=== PATIENT | male | born 1955 | race Caucasian/White ===

== ENCOUNTER 2017-01-04 08:24 | Emergency (ER) | payer MEDICAID, OTHER ==
[~2017-01-04] VITALS: Ht 177.8 cm; Wt 106.0 kg
[~2017-01-04 08:24] MED LIST: ADVA250A INH; ADVAI250I PO; ALBU1AER INH; APIX5TAB PO; CART240C4 PO; OMEP20TA39 PO
[2017-01-04 08:29] VITALS: BP 135/85; PULSE 82; RESP 20; TEMP 97.5; O2SAT 95
[2017-01-04] MEDS ORDERED: ADVA250A INH (08:55)
[2017-01-04] MEDS ORDERED: GUAI100S7 PO (08:55)
[2017-01-04] MEDS ORDERED: HYDR-3533 PO (08:55)
[2017-01-04] MEDS ORDERED: METO100T9 PO (08:55)
[2017-01-04] MEDS ORDERED: ALBUAER3 INH (08:55)
[2017-01-04] MEDS ORDERED: APIX5TAB PO (08:55)
[2017-01-04] MEDS ORDERED: OMEP20TA PO (08:55)
[2017-01-04] MEDS ORDERED: AZITHROMYCIN 250 MG TAB PO ONE (09:00)
[2017-01-04] MEDS ORDERED: RESP: ALBUTEROL 2.5 MG/IPRATROPIUM 0.5 MG NEB (SCH) INH ONE (09:00)
[2017-01-04] MEDS ORDERED: predniSONE 20 MG TAB PO ONE (09:00)
[2017-01-04] MEDS ORDERED: AZIT250T3 PO (09:46)
[2017-01-04] MEDS ORDERED: DEXT1TAB18 PO (09:46)
[2017-01-04] MEDS ORDERED: PRED-503 PO (09:46)
--- NOTE | 2017-01-04 09:47 | PD ---
HPI Chief Complaint: Cold / Flu Symptoms Time Seen by Provider: 08:35 Travel History International Travel<30 days: No Contact w/Intl Traveler<30days: No Traveled to known affect area: No History of Present Illness HPI This is a 61-year-old man who presents to the emergency department complaining of a high right flank pain for the past week associated with worsening of his COPD symptoms. He describes increased phlegm and sputum production, increased shortness of breath, increased sputum purulence. It also be getting a little bit lightheaded and dizzy when she's gotten when he gotten sick before. He said some chills and subjective fevers. He is also a little bit of abdominal pain. He is currently dealing with a: Mastoids still being evaluated. He takes stool softener to prevent any problems and has had soft stools ever since. No vomiting. He otherwise has been feeling generally well and healthy. History Past Medical History Narrative Medical COPD A. fib, Eliquis Tetanus Vaccination: Unknown Influenza Vaccination: No Social History Alcohol Use: Yes (8-10 beers day ) Tobacco Use: Yes (1 PPD) Allergies-Medications (Allergen,Severity, Reaction): Coded Allergies: No Known Allergies (Verified , 01/04/17) Reported Meds & Prescriptions Reported Meds & Active Scripts Active Reported Lortab (Hydrocodone-Acetaminophen) 5-325 Mg Tab 1 Tab PO Q6H PRN Guaifenesin Liq (Guaifenesin) 100 mg/5 ML Soln 400 Mg PO Q4H PRN Metoprolol Succinate ER 24 HR (Metoprolol Succinate) 100 Mg Tab 100 Mg PO DAILY Eliquis (Apixaban) 5 Mg Tab 5 Mg PO BID Proair Hfa 8.5 GM Inh (Albuterol Sulfate) 90 Mcg/Act Aer 2 Puff INH QID PRN 108 mcg/actuation Omeprazole 20 Mg Tab 20 Mg PO DAILY Advair Diskus Inh (Fluticasone-Salmeterol Inh) 250-50 Mcg/Blist Aer 1 Puff INH DAILY Rinse mouth after use. Review of Systems Except as stated in HPI: all other systems reviewed are Neg Physical Exam Narrative GENERAL: Well-appearing 61-year-old man, no acute distress. HEAD: Atraumatic. Normocephalic. EYES: Pupils equal and round. No scleral icterus. No injection or drainage. ENT: No nasal bleeding or discharge. Mucous membranes pink and moist. NECK: Trachea midline. No JVD. CARDIOVASCULAR: Regular rate and rhythm. No murmur appreciated. RESPIRATORY: Normal rate and effort. Mild expiratory wheezing. GASTROINTESTINAL: Abdomen soft, non-tender, nondistended. Hepatic and splenic margins not palpable. MUSCULOSKELETAL: No obvious deformities. No edema. NEUROLOGICAL: Awake and alert. No obvious cranial nerve deficits. Motor grossly within normal limits. Normal speech. PSYCHIATRIC: Appropriate mood and affect; insight and judgment normal. Data Data Last Documented VS Vital Signs Date Time Temp Pulse Resp B/P Pulse Ox O2 Delivery O2 Flow Rate FiO2 01/04/17 08:41 16 95 Room Air 01/04/17 08:29 97.5 82 135/85 Orders Chest, Pa & Lat (01/04/17 08:48) Albuterol-Ipratropium Neb (Duoneb Neb) (01/04/17 09:00) Prednisone (Deltasone) (01/04/17 09:00) Azithromycin (Zithromax) (01/04/17 09:00) MDM Medical Decision Making Medical Screen Exam Complete: Yes Emergency Medical Condition: Yes Interpretation(s) My review of chest x-ray: Negative Differential Diagnosis COPD exacerbation, pneumonia, UTI, other Narrative Course Medical decision making 61-year-old man who presents emergency department complaining of cough cold symptoms. These are social with some flank pain and worsening COPD. He otherwise looks well. He states he had blood work done just recently that was normal. He is not noticed any urinary changes. He doesn't really want any blood work or urine test done at this point. I think it's reasonable. Check an x-ray, treatment for COPD exacerbation. Diagnosis Primary Impression: COPD exacerbation Additional Instructions: Use Mucinex DM as needed for cough. Take prednisone as prescribed. Asked doses due tomorrow. Take azithromycin as prescribed. Next dose is due tomorrow. Continue albuterol inhaler or nebulizer every 4 hours until symptoms resolve. Follow-up with your primary doctor in 1-2 days. Return to the emergency department for any worsening chest pain, trouble breathing, or any other new or worsening symptoms. Med/Other Pt SpecificInfo: Prescription(s) given Scripts Dextromethorphan-Guaifenesin ER 12 HR (Mucinex DM Maximum Strength)60-1,200 Mg Tab1 Tab PO BID PRN (CHEST CONGESTION AND/OR COUGH) #14 TAB Prov:Chris Alvarez MD 01/04/17 Prednisone (Deltasone)20 Mg Tab40 Mg PO DAILY 10 Days Prov:Chris Alvarez MD 01/04/17 Azithromycin 250 Mg Hiq613 Mg PO DAILY 4 Days Prov:Chris Alvarez MD 01/04/17 Disposition: 01 DISCHARGE HOME Condition: Stable Chris Alvarez MD Jan 04, 2017 09:47
[2017-01-04] MEDS ORDERED: ALBU0.08 NEB (09:53)
--- NOTE | 2017-01-04 09:59 | RADHPO ---
EXAM DATE/TIME: 01/04/2017 08:58 [facility] COMPARISON: CHEST PA & LAT, January 03, 2016, 12:10. INDICATIONS : Shortness of breath,coughing and chest pain. MEDICAL HISTORY : Hypertension. Chronic obstructive pulmonary disease. Diverticulitis. Hiatal Hernia, GERD, Esophag eal polyps, A-Fib SURGICAL HISTORY : Cholecystectomy. ENCOUNTER: Initial ACUITY: 4 - 6 days PAIN SCORE: 7/10 LOCATION: Bilateral upper chest FINDINGS: PA and lateral views of the chest demonstrate the lungs to be symmetrically aerated without confluent infiltrate or effusion. There were nodular densities clearly identified on the prior exam which are difficult to see currently. I believe the nodule previously identified in the right base now projects over one of the lower ribs. These nodules were deemed stable over multiple years on the prior exams. Heart size is normal. Osseous structures are intact. CONCLUSION: 1. No confluent infiltrate or effusion. 2. Nodules documented on previous CT and plain film radiographs of the chest are difficult to visuali ze on the current exam. I believe the small nodule in the right base now projects over one of the rib s. Lungs are otherwise clear. Sky Tran MD on January 04, 2017 at 9:51 Board Certified Radiologist. This report was verified electronically.
[2017-01-04 10:10] VITALS: BP 129/77
== END 2017-01-04 10:18 | disposition home or self-care (01) ==
LOC: PHED 08:24
DX: J44.1 Chronic obstructive pulmonary disease with (acute) exacerbation (principal); R42 Dizziness and giddiness; I48.91 Unspecified atrial fibrillation; F17.200 Nicotine dependence, unspecified, uncomplicated; Z79.01 Long term (current) use of anticoagulants; Z87.09 Personal history of other diseases of the respiratory system
CPT/HCPCS: 71020; 94664; 99284; J7512

== ENCOUNTER 2017-08-11 08:33 | Inpatient (IN) | payer MEDICAID ==
[~2017-08-11] VITALS: Ht 175.3 cm; Wt 108.2 kg
[2017-08-11] VITALS (13 sets, daily range): BP systolic 119–172; BP diastolic 73–97; PULSE 51–147; RESP 16–24; TEMP 97.7–98.2; O2SAT 96–100
[~2017-08-11 08:33] MED LIST changes: -ADVAI250I PO; +ALBU0.08 NEB; -ALBU1AER INH; +ALBUAER3 INH; +AZIT250T3 PO; -CART240C4 PO; +DEXT1TAB18 PO; +GUAI100S7 PO; +HYDR-3533 PO; +METO1TAB43 PO; -OMEP20TA39 PO; +OMEP20TA93 PO; +PRED-503 PO
[2017-08-11] MEDS ORDERED: SODIUM CHLORIDE 0.9% FLUSH 10 ML FLUSH IV FLUSH PRN (09:00)
[2017-08-11] MEDS ORDERED: HYDROmorphone HCL PF 2 MG/ML VIAL IVS ONE (09:00)
[2017-08-11] MEDS ORDERED: ONDANSETRON HCL 4 MG/2 ML VIAL IVP ONE (09:00)
--- NOTE | 2017-08-11 09:06 | PD ---
HPI Chief Complaint: Chest Pain Time Seen by Provider: 08:57 Travel History International Travel<30 days: No Contact w/Intl Traveler<30days: No Traveled to known affect area: No History of Present Illness HPI Patient presents with complaints of acute right flank pain that is shooting through to his liver across the abdomen and into his bilateral breast with constant tingling. Last BM yesterday without blood. He attempted Miralax, coffee and beer this morning which normally aids in his bowel movements. Admits to 6-12 beers per day. Reports one episode of vomiting this morning with persistent nausea. States his urination has slowed since midnight. History of cholecystectomy. Past medical history for A. fib followed by cardiology. Compliant with beta isaiah last night. Compliant with Eliquis this morning. History of COPD he has not followed by pulmonology. 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 Kenny with recent multiple colonoscopies. PFSH Past Medical History Hx Anticoagulant Therapy: Yes (ELIQUIS) Atrial Fibrillation: Yes Autoimmune Disease: No Cancer: No Cardiovascular Problems: Yes (A-FIB) COPD: Yes Diabetes: No Diminished Hearing: No Diverticulitis: Yes Endocrine: No Gastrointestinal Disorders: Yes (ESOPHAGEAL POLYPS) GERD: Yes Genitourinary: No Hiatal Hernia: Yes Immune Disorder: No Musculoskeletal: No Neurologic: No Reproductive: No Respiratory: Yes (COPD) Immunizations Current: Yes Thyroid Disease: No Past Surgical History Abdominal Surgery: Yes (gallbladder removed) Cholecystectomy: Yes Eye Surgery: Yes (LEFT EYE A CHILD) Other Surgery: Yes Social History Alcohol Use: Yes (8-10 beers day ) Tobacco Use: Yes (1 PPD) Substance Use: Yes (hx of POT use) Allergies-Medications (Allergen,Severity, Reaction): Coded Allergies: No Known Allergies (Verified Allergy, Unknown, 08/11/17) Reported Meds & Prescriptions Reported Meds & Active Scripts Active Albuterol Neb (Albuterol Sulfate) 2.5 Mg/3 Ml Neb 2.5 Mg NEB Q4HR NEB PRN Reported Hydrocodone-Acetaminophen 5-325 mg Tab 1 Tab PO Q6H PRN Metoprolol Succinate ER 24 HR (Metoprolol Succinate) 100 Mg Tab 100 Mg PO DAILY Eliquis (Apixaban) 5 Mg Tab 5 Mg PO BID Proair Hfa 8.5 GM Inh (Albuterol Sulfate) 90 Mcg/Act Aer 2 Puff INH QID PRN 108 mcg/actuation Omeprazole 20 Mg Tab 20 Mg PO DAILY Advair Diskus Inh (Fluticasone-Salmeterol Inh) 250-50 Mcg/Blist Aer 1 Puff INH DAILY Rinse mouth after use. Review of Systems General / Constitutional: No: Fever Eyes: No: Visual changes HENT: No: Headaches Cardiovascular: No: Chest Pain or Discomfort Respiratory: No: Shortness of Breath Gastrointestinal: Positive: Nausea, Vomiting, Abdominal Pain, Constipation Genitourinary: No: Dysuria Musculoskeletal: No: Pain Skin: No Rash Neurologic: No: Weakness Psychiatric: No: Depression Endocrine: No: Polydipsia Hematologic/Lymphatic: No: Easy Bruising Physical Exam Narrative GENERAL: Well-nourished, well-developed patient. SKIN: Focused skin assessment warm/dry. HEAD: Normocephalic. EYES: No scleral icterus. No injection or drainage. NECK: Supple, trachea midline. No JVD or lymphadenopathy. CARDIOVASCULAR: Irregular rate and rhythm without murmurs, gallops, or rubs. Tachycardic rate in the 120s RESPIRATORY: Breath sounds equal bilaterally. No accessory muscle use. GASTROINTESTINAL: Abdomen distended, diffusely tender in all [place], positive upper bowel sounds Pain is 10 out of 10 constant in nature with the exception of right back pain and bilateral breast tingling presents in waves. Palpation of the right flank elicits right flank pain MUSCULOSKELETAL: No cyanosis, or edema. BACK: Nontender without obvious deformity. No CVA tenderness. Data Data Last Documented VS Vital Signs Date Time Temp Pulse Resp B/P (MAP) Pulse Ox O2 Delivery O2 Flow Rate FiO2 08/11/17 10:23 17 08/11/17 10:20 122 172/93 (119) 97 Room Air 08/11/17 08:35 97.7 Orders Orders Complete Blood Count With Diff (08/11/17 08:57) Comprehensive Metabolic Panel (08/11/17 08:57) Lipase (08/11/17 08:57) Lactic Acid (08/11/17 08:57) Prothrombin Time / Inr (Pt) (08/11/17 08:57) Act Partial Throm Time (Ptt) (08/11/17 08:57) Urinalysis - C+S If Indicated (08/11/17 08:57) Ct Abd/Pel W Iv Contrast(Rout) (08/11/17 08:57) Iv Access Insert/Monitor (08/11/17 08:57) Ecg Monitoring (08/11/17 08:57) Oximetry (08/11/17 08:57) Hydromorphone Pf Inj (Dilaudid Pf Inj) (08/11/17 09:00) Ondansetron Inj (Zofran Inj) (08/11/17 09:00) Sodium Chloride 0.9% Flush (Ns Flush) (08/11/17 09:00) Ckmb (Isoenzyme) Profile (08/11/17 09:07) Magnesium (Mg) (08/11/17 09:07) Troponin I (08/11/17 09:07) Chest, Single Ap (08/11/17 09:07) Hydromorphone Pf Inj (Dilaudid Pf Inj) (08/11/17 09:30) Iohexol 350 Inj (Omnipaque 350 Inj) (08/11/17 09:57) Sodium Chlor 0.9% 1000 Ml Inj (Ns 1000 M (08/11/17 10:15) NPO (08/11/17 10:02) Apixaban (Eliquis) (08/11/17 21:00) (Nf) Fluticasone-Salmeterol Inh (Advair (08/12/17 09:00) Metoprolol Succinate Er (Toprol Xl) (08/12/17 09:00) Labetalol Inj (Trandate Inj) (08/11/17 11:00) Admit To Inpatient (08/11/17 ) Code Status (08/11/17 10:49) Vital Signs (Adult) Q4H (08/11/17 10:49) Activity Oob Ad Gillian (08/11/17 10:49) Intake + Output ALLAN.QSHIFT (08/11/17 10:49) Diet Npo (08/11/17 Lunch) Sodium Chlor 0.9% 1000 Ml Inj (Ns 1000 M (08/11/17 10:49) Sodium Chloride 0.9% Flush (Ns Flush) (08/11/17 11:00) Sodium Chloride 0.9% Flush (Ns Flush) (08/11/17 21:00) Ketorolac Inj (Toradol Inj) (08/11/17 11:00) Ondansetron Inj (Zofran Inj) (08/11/17 11:00) Lipase (08/12/17 06:00) Complete Blood Count With Diff (08/12/17 06:00) Us Abdomen Gallbladder (08/11/17 ) Inpatient Certification (08/11/17 ) Alcohol (Ethanol) (08/11/17 10:49) Comprehensive Metabolic Panel (08/12/17 06:00) Pantoprazole (Protonix) (08/12/17 09:00) Albuterol-Ipratropium Neb (Duoneb Neb) (08/11/17 11:00) Hemoglobin (Hgb) A1c (08/12/17 06:00) Bedside Glucose ALLAN.CSUGAR (08/11/17 10:49) Blood Glucose Goal (Criteria) (08/11/17 10:49) Hypoglycemia 70 Mg/Dl Or < (08/11/17 10:49) Notify Dr: Other (08/11/17 10:49) Dextrose 50% In Sonny (Vial) Inj (D50w (Vi (08/11/17 11:00) Glucagon Inj (Glucagon Inj) (08/11/17 11:00) Insulin Aspart Supplemtl Scale (Novolog (08/11/17 12:00) Enalaprilat Inj (Vasotec Inj) (08/11/17 11:00) Lactic Acid (08/11/17 10:55) Ciprofloxacin 400 Mg Premix (Cipro 400 M (08/11/17 11:00) Admit Order (Ed Use Only) (08/11/17 ) Vital Signs (Adult) Q4H (08/11/17 10:57) Activity Oob With Assistance (08/11/17 10:57) Notify Dr: Other (08/11/17 10:57) Labs Laboratory Tests Test 08/11/17 08:45 08/11/17 09:08 08/11/17 10:20 White Blood Count 15.1 TH/MM3 Red Blood Count 5.01 MIL/MM3 Hemoglobin 15.3 GM/DL Hematocrit 44.4 % Mean Corpuscular Volume 88.7 FL Mean Corpuscular Hemoglobin 30.6 PG Mean Corpuscular Hemoglobin Concent 34.5 % Red Cell Distribution Width 12.9 % Platelet Count 370 TH/MM3 Mean Platelet Volume 7.6 FL CBC Comment AUTO DIFF Differential Total Cells Counted 100 Neutrophils % (Manual) 85 % Band Neutrophils % 4 % Lymphocytes % 6 % Monocytes % 3 % Basophils % 2 % Neutrophils # (Manual) 13.4 TH/MM3 Differential Comment FINAL DIFF MANUAL Platelet Estimate NORMAL Platelet Morphology Comment NORMAL Red Cell Morphology Comment NORMAL Prothrombin Time 10.6 SEC Prothromb Time International Ratio 1.0 RATIO Activated Partial Thromboplast Time 28.5 SEC Blood Urea Nitrogen 13 MG/DL Creatinine 0.97 MG/DL Random Glucose 207 MG/DL Total Protein 7.9 GM/DL Albumin 3.6 GM/DL Calcium Level 9.5 MG/DL Alkaline Phosphatase 75 U/L Aspartate Amino Transf (AST/SGOT) 22 U/L Alanine Aminotransferase (ALT/SGPT) 36 U/L Total Bilirubin 0.6 MG/DL Sodium Level 135 MEQ/L Potassium Level 4.0 MEQ/L Chloride Level 102 MEQ/L Carbon Dioxide Level 20.6 MEQ/L Anion Gap 12 MEQ/L Estimat Glomerular Filtration Rate 79 ML/MIN Magnesium Level 1.8 MG/DL Total Creatine Kinase 99 U/L Troponin I LESS THAN 0.02 NG/ML Lipase 63045 U/L Lactic Acid Level 2.1 mmol/L Urine Collection Type CLEAN CATCH Urine Color YELLOW Urine Turbidity CLEAR Urine pH 5.5 Urine Specific [place] GREATER THAN 1.035 Urine Protein TRACE mg/dL Urine Glucose (UA) 500 mg/dL Urine Ketones 15 mg/dL Urine Occult Blood TRACE Urine Nitrite NEG Urine Bilirubin NEG Urine Leukocyte Esterase NEG Urine RBC 0-3 /hpf Urine Squamous Epithelial Cells 0-5 /hpf Urine Amorphous Sediment FEW Microscopic Urinalysis Comment CULT NOT INDICATED Urine Collection Time 1020 MDM Medical Decision Making Medical Screen Exam Complete: Yes Emergency Medical Condition: Yes Differential Diagnosis Pyelonephritis, nephrolithiasis, pancreatitis, small bowel obstruction, ischemic bowel, uncontrolled A. fib Narrative Course Assessment and plan discussed with patient at bedside. EKG reveals atrial fibrillation with rapid ventricular rate of 122, right bundle branch block present. CT revealed induration of the fat of the mesentery in the right upper quadrant surrounding the second portion of the duodenum and head of the pancreas. No dilatation of the distal common bile duct. Clinical labs and correlation with this indicate pancreatitis likely alcohol-induced. Pain is controlled. Patient made nothing by mouth. Fluids provided. Anti-emetic as needed. Patient did take his anticoagulation for A. fib and beta isaiah last night for rate control. Currently uncontrolled. IV labetalol provided with observation. Likely his uncontrolled secondary to pain and acute inflammation of the pancreas. Physician Communication Physician Communication Spoke with Dr. Jessica who is in agreement will admit Diagnosis Primary Impression: Pancreatitis Qualified Codes: K85.20 - Alcohol induced acute pancreatitis without necrosis or infection Burt Hawkins MD Aug 11, 2017 09:06
[2017-08-11 09:15] LABS: HEMATOCRIT 44.4 % (39.0-51.0); MEAN CELL VOLUME 88.7 FL (80.0-100.0); MEAN CORPUSCULAR HEMOGLOBIN 30.6 PG (27.0-34.0); MEAN CORPUSCULAR HGB CONC 34.5 % (32.0-36.0); PLATELET COUNT 370 TH/MM3 (150-450); RED BLOOD COUNT 5.01 MIL/MM3 (4.50-5.90); RED CELL DISTRIBUTION WIDTH 12.9 % (11.6-17.2); WHITE BLOOD COUNT 15.1 TH/MM3 (4.0-11.0)
[2017-08-11 09:19] LABS: HEMO FLAGS AUTO DIFF
[2017-08-11] MEDS ORDERED: HYDR-3516 PO (09:21)
[2017-08-11 09:25] LABS: APTT (PATIENT) 28.5 SEC (24.3-30.1); PROTHROMBIN TIME - PATIENT 10.6 SEC (9.8-11.6)
[2017-08-11] MEDS ORDERED: HYDROmorphone HCL PF 1 MG/ML VIAL IV PUSH ONE (09:30)
[2017-08-11 09:36] LABS: BANDS 4 % (0-6); BASOPHILS 2 % (0-2); NEUTROPHIL # MANUAL DIFF 13.4 TH/MM3 (1.8-7.7); POLYS (SEG NEUTROPHILS) 85 % (16-70); WBC DIFF SAMPLE 100
[2017-08-11 09:37] LABS: PLATELET ESTIMATE SMEAR NORMAL (NORMAL); PLATELET MORPHOLOGY NORMAL (NORMAL); SCAN/DIFF FINAL DIFF MANUAL
[2017-08-11 09:41] LABS: CHLORIDE 102 MEQ/L (98-107); SODIUM (NA) 135 MEQ/L (136-145)
[2017-08-11 09:45] LABS: ANION GAP 12 MEQ/L (5-15); BICARBONATE 20.6 MEQ/L (21.0-32.0)
[2017-08-11 09:48] LABS: AST (GOT) 22 U/L (15-37); GLOMERULAR FILTRATION RATE 79 ML/MIN (>89); MAGNESIUM 1.8 MG/DL (1.5-2.5)
[2017-08-11 09:50] LABS: TOTAL BILIRUBIN ADULT 0.6 MG/DL (0.2-1.0)
[2017-08-11 09:51] LABS: ALKALINE PHOSPHATASE 75 U/L (45-117)
[2017-08-11 09:57] LABS: ALT (GPT) 36 U/L (12-78); BLOOD UREA NITROGEN 13 MG/DL (7-18); CREATINE KINASE 99 U/L (39-308)
[2017-08-11] MEDS ORDERED: IOHEXOL 350 MG/ML 10 ML VIAL (for RAD DIAG) IVCONTRAST ONE (09:57)
[2017-08-11] MEDS ORDERED: SODIUM CHLOR 0.9% 1000 ML INJ 1,000 ML IV SCH (10:15)
--- NOTE | 2017-08-11 10:18 | RADRPT ---
EXAM DATE/TIME: 08/11/2017 09:08 CORRE[place] Corrected on: August 13, 2017; fixed date and time [facility] COMPARISON: No previous studies available for comparison. INDICATIONS : Chest pain. MEDICAL HISTORY : None. SURGICAL HISTORY : None. ENCOUNTER: Initial ACUITY: 1 day PAIN SCORE: 7/10 LOCATION: Bilateral chest FINDINGS: A single view of the chest demonstrates the lungs to be symmetrically aerated without evidence of mas s, infiltrate or effusion. The heart is moderately enlarged. There is mild indistinctness of the ce ntral bronchopulmonary markings without definite peribronchial thickening.. Osseous structures are i ntact. CONCLUSION: 1. Cardiomegaly without radiographic evidence of congestive failure. 2. No focal infiltrates seen. Last Kaur MD on August 11, 2017 at 10:16 Board Certified Radiologist. Board Certified Radiologist. This report was verified electronically.
--- NOTE | 2017-08-11 10:28 | RADRPT ---
EXAM DATE/TIME: 08/11/2017 09:50 [facility] COMPARISON: CT ABDOMEN & PELVIS W CONTRAST, February 29, 2016, 15:23. INDICATIONS : Increasing right flank pain radiating across abdomen to chest with nausea, vomiting and constipation since last night. IV CONTRAST: 95 cc Omnipaque 350 (iohexol) IV ORAL CONTRAST: No oral contrast ingested. RADIATION DOSE: 26.01 CTDIvol (mGy) ; Patient body habitus MEDICAL HISTORY : Chronic obstructive pulmonary disease. Diverticulitis. Gastroesophageal reflux disease.Anticoagulant therapy. 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 Esophageal polyps. Hiata l hernia. SURGICAL HISTORY : Cholecystectomy. ENCOUNTER: Initial ACUITY: 2 days PAIN SCALE: 10/10 LOCATION: Right flank chest TECHNIQUE: Volumetric scanning of the abdomen and pelvis was performed. Using automated exposure control and ad justment of the mA and/or kV according to patient size, radiation dose was kept as low as reasonably achievable to obtain optimal diagnostic quality images. DICOM format image data is available electro nically for review and comparison. FINDINGS: LOWER LUNGS: Linear scarring in the lateral right lower lung and 5 mm subpleural nodules unchanged from multiple p rior exams. LIVER: Severe diffuse fatty change with focal sparing in the posterior lateral right lobe, unchanged from pr ior examination in 2016. Cholecystectomy. No dilation of the intra-or extrahepatic biliary ducts. The configuration distal common bile duct is very similar to prior examination in 2016. SPLEEN: Normal size without lesion. PANCREAS: Normal contour and appearance. There is some minimal induration of the mesenteric fat adjacent to th e head of the pancreas and 2nd portion of the duodenum. No focal fluid collections seen. KIDNEYS: Normal in size and shape. There is no mass, stone or hydronephrosis. ADRENAL GLANDS: Within normal limits. VASCULAR: There is no aortic aneurysm. 2 left renal arteries. BOWEL/MESENTERY: No dilated loops of small or large bowel. ABDOMINAL WALL: Within normal limits. RETROPERITONEUM: There is no lymphadenopathy. BLADDER: No wall thickening or mass. REPRODUCTIVE: Within normal limits. INGUINAL: There is no lymphadenopathy or hernia. MUSCULOSKELETAL: Within normal limits for patient age. CONCLUSION: 1. There is some mild induration of the fat of the mesentery in the right upper quadrant surrounding the 2nd portion of the duodenum and head of the pancreas. No dilation of the distal common bile duct . This is of uncertain significance. Recommend correlation with clinical labs for possible pancreat itis. 2. Severe steatosis of the liver, stable in appearance from 2016. Last Kaur MD on August 11, 2017 at 10:16 Board Certified Radiologist. This report was verified electronically.
[2017-08-11 10:32] LABS: GLUCOSE,URINE 500 mg/dL (NEG); KETONE, URINE 15 mg/dL (NEG); NITRITE,URINE NEG (NEG); PH, URINE 5.5 (5.0-8.5)
[2017-08-11 10:33] LABS: BLOOD, URINE TRACE (NEG); METHOD OF COLLECTION CLEAN CATCH; URINE COLOR YELLOW (YELLW/STRAW)
[2017-08-11 10:35] LABS: COMMENT (UR) CULT NOT INDICATED; COMMENT2 (UR) MUCOUS PRESENT; CULTURE IF INDICATED CULT NOT INDICATED; RBC, URINE 0-3 /hpf (0-3); SQUAMOUS EPITHELIAL CELL URINE 0-5 /hpf (0-5)
[2017-08-11] MEDS ORDERED: ENALAPRILAT 2.5 MG/2 ML VIAL IV PUSH PRN (11:00)
[2017-08-11] MEDS ORDERED: LABETALOL HCL 100 MG/20 ML VIAL IV PUSH ONE (11:00)
[2017-08-11] MEDS ORDERED: ONDANSETRON HCL 4 MG/2 ML VIAL IV PUSH PRN (11:00)
[2017-08-11] MEDS ORDERED: GLUCAGON 1 MG/ML VIAL OTHER PRN (11:00)
[2017-08-11] MEDS ORDERED: DEXTROSE 50% IN WATER 50 ML VIAL(D50) IV PUSH PRN (11:00)
[2017-08-11] MEDS ORDERED: RESP: ALBUTEROL 2.5 MG/IPRATROPIUM 0.5 MG NEB (PRN) NEB (11:00)
[2017-08-11] MEDS ORDERED: KETOROLAC TROMETHAMINE 30 MG/ML (IVP) VIAL IVP PRN (11:00)
--- NOTE | 2017-08-11 11:00 | HHI.HP ---
[facility] Service [facility] Primary Care Physician Gokul Crawford, DO Admission Diagnosis pancreatitis with uncontrolled A. fib Diagnoses: (1) Abdominal pain Diagnosis: Principal (2) Nausea & vomiting Diagnosis: Principal Chief Complaint: Severe abdominal pain with nausea vomiting Travel History International Travel<30 Days: No Contact w/Intl Traveler <30 Da: No Traveled to Known Affected Are: No Sepsis Criteria SIRS Criteria (2 or more): Heart rate over 90, WBC > 32851, < 4000 or > 10% bands Sepsis Criteria (SIRS+source): Infect source susp/known Severe Sepsis (+one): Lactate >2 Criteria Outcome: Meets severe sepsis criteria History of Present Illness Written by Guanakito Juárez, acting as scribe for Dr. Mcneil on 08/11/17 at 10 :59. 61 year-old male with known history of atrial fibrillation, chronic obstructive pulmonary disease, chronic tobacco use, chronic alcohol abuse who presented to hospital because acute onset abdominal pain. Patient states that he has had a mid backache and pain for the last 5-6 months. Last night at midnight he developed severe pain that started in his back and radiated out around his right side. The pain continued to move across his abdomen and then he started developing a pain that he describes as a scott or knife stabbing him in both breasts. States that pain was intermittent with being 10/10 on a pain scale. He did take one half of a Elizabeth last evening without any relief. At 4 AM he states that he had an episode of nausea and vomiting without any hematemesis, coffee-ground emesis. Patient indicates that he has had associated fever/chills. [facility] home however there was no elevation in his temperature. The pain persisted throughout the morning, he did drink a beer at approximately 7:30 this morning in order for him to have a bowel movement. He has not ate anything since last evening which was turkey soup. At time evaluating the patient he does have severe abdominal pain which is not resolved with Dilaudid. Patient workup does indicate severe sepsis with acute pancreatitis. Patient will be admitted for further evaluation and management. Review of Systems Constitutional: COMPLAINS OF: Chills Gastrointestinal: COMPLAINS OF: Abdominal pain, Nausea, Vomiting Except as stated in HPI: all other systems reviewed are Neg Past Family Social History Past Medical History Atrial fibrillation Chronic obstructive pulmonary disease Gastroesophageal reflux Tobacco use Alcohol use Past Surgical History Cholecystectomy Left eye surgery Reported Medications Reported Meds & Active Scripts Active Albuterol Neb (Albuterol Sulfate) 2.5 Mg/3 Ml Neb 2.5 Mg NEB Q4HR NEB PRN Reported Hydrocodone-Acetaminophen 5-325 mg Tab 1 Tab PO Q6H PRN Metoprolol Succinate ER 24 HR (Metoprolol Succinate) 100 Mg Tab 100 Mg PO DAILY Eliquis (Apixaban) 5 Mg Tab 5 Mg PO BID Proair Hfa 8.5 GM Inh (Albuterol Sulfate) 90 Mcg/Act Aer 2 Puff INH QID PRN 108 mcg/actuation Omeprazole 20 Mg Tab 20 Mg PO DAILY Advair Diskus Inh (Fluticasone-Salmeterol Inh) 250-50 Mcg/Blist Aer 1 Puff INH DAILY Rinse mouth after use. Allergies: Coded Allergies: No Known Allergies (Verified Allergy, Unknown, 08/11/17) Family History Reviewed is significant for father from lung cancer, mother having cancer and heart disease Social History Patient continues smoke one pack a cigarettes a day for the last 45 years, patient continues to drink 8-14 beers daily for 45 years. Physical Exam Vital Signs Vital Signs Date Time Temp Pulse Resp B/P (MAP) Pulse Ox O2 Delivery O2 Flow Rate FiO2 08/11/17 10:23 17 08/11/17 10:20 122 17 172/93 (119) 97 Room Air 08/11/17 09:33 16 08/11/17 09:13 126 18 119/85 (96) 100 Room Air 08/11/17 08:45 24 100 Room Air 08/11/17 08:45 112 24 100 Room Air 08/11/17 08:35 97.7 121 24 155/96 (115) 100 Physical Exam GENERAL: Well-developed, well-nourished, in no acute distress. alert and orientated HEENT: Head is normocephalic without any lesions or masses noted. Facial features are symmetric. Eyes: Pupils equal round reactive to light. Extraocular muscles are intact. Conjunctivae were clear. Oropharyngeal: Pharynx without any erythema edema. Tongue is midline without deviation. Buccal mucosa is moist without any masses or lesions NECK: Supple without any masses. Trachea midline no deviation. No JVD, no bruits are appreciated CARDIAC: Regular rhythm, regular rate. S1/S2 are heard. No murmurs gallops or rubs. LUNGS: Clear to auscultation bilaterally. No wheeze, rhonchi or rales. No use of accessory muscles on inspiration or expiration. ABDOMEN: Soft, nontender. Nondistended. Bowel sounds heard in all 4 quadrants. No organomegaly or masses. Negative rebound, negative guarding EXTREMITIES: No edema, pulses are equal bilaterally. No cyanosis or clubbing NEUROLOGY: Mood and affect appear appropriate. Cranial nerves II through XII grossly intact. Muscle strength 5/5 in upper and lower extremities bilaterally. Deep tendon reflexes are 2+ in upper and lower extremities bilaterally. Laboratory Laboratory Tests Test 08/11/17 08:45 08/11/17 09:08 08/11/17 10:20 White Blood Count 15.1 Red Blood Count 5.01 Hemoglobin 15.3 Hematocrit 44.4 Mean Corpuscular Volume 88.7 Mean Corpuscular Hemoglobin 30.6 Mean Corpuscular Hemoglobin Concent 34.5 Red Cell Distribution Width 12.9 Platelet Count 370 Mean Platelet Volume 7.6 CBC Comment AUTO DIFF Differential Total Cells Counted 100 Neutrophils % (Manual) 85 Band Neutrophils % 4 Lymphocytes % 6 Monocytes % 3 Basophils % 2 Neutrophils # (Manual) 13.4 Differential Comment FINAL DIFF MANUAL Platelet Estimate NORMAL Platelet Morphology Comment NORMAL Red Cell Morphology Comment NORMAL Prothrombin Time 10.6 Prothromb Time International Ratio 1.0 Activated Partial Thromboplast Time 28.5 Blood Urea Nitrogen 13 Creatinine 0.97 Random Glucose 207 Total Protein 7.9 Albumin 3.6 Calcium Level 9.5 Alkaline Phosphatase 75 Aspartate Amino Transf (AST/SGOT) 22 Alanine Aminotransferase (ALT/SGPT) 36 Total Bilirubin 0.6 Sodium Level 135 Potassium Level 4.0 Chloride Level 102 Carbon Dioxide Level 20.6 Anion Gap 12 Estimat Glomerular Filtration Rate 79 Magnesium Level 1.8 Total Creatine Kinase 99 Troponin I LESS THAN 0.02 Lipase 15064 Lactic Acid Level 2.1 Urine Collection Type CLEAN CATCH Urine Color YELLOW Urine Turbidity CLEAR Urine pH 5.5 Urine Specific [place] GREATER THAN 1.035 Urine Protein TRACE Urine Glucose (UA) 500 Urine Ketones 15 Urine Occult Blood TRACE Urine Nitrite NEG Urine Bilirubin NEG Urine Leukocyte Esterase NEG Urine RBC 0-3 Urine Squamous Epithelial Cells 0-5 Urine Amorphous Sediment FEW Microscopic Urinalysis Comment CULT NOT INDICATED Urine Collection Time 1020 Result Diagram: 08/11/1784408/11/17844 Septic Shock Reassessment Heart: Regular rate and rhythm Lungs: Clear Skin: Warm, [place] Peripheral Pulses: Bounding Right Radial Bounding Left Radial Capillary Refill: Brisk, <2 seconds Caprini VTE Risk Assessment Caprini VTE Risk Assessment: Mod/High Risk (score >= 2) Caprini Risk Assessment Model Point Value = 1 Point Value = 2 Point Value = 3 Point Value = 5 Age 41-60 Minor surgery BMI > 25 kg/m2 Swollen legs Varicose veins or History of unexplained or recurrent spontaneous Oral contraceptives or hormone replacement Sepsis (< 1 month) Serious lung disease, including pneumonia (< 1 month) Abnormal pulmonary function Acute myocardial infarction Congestive heart failure (< 1 month) History of inflammatory bowel disease Medical patient at bed rest Age 61-74 Arthroscopic surgery Major open surgery (> 45 min) Laparoscopic surgery (> 45 min) Malignancy Confined to bed (> 72 hours) Immobilizing plaster cast Central venous access Age >= 75 History of VTE Family history of VTE Factor V Leiden Prothrombin [id number] Lupus anticoagulant Anticardiolipin antibodies Elevated serum homocysteine Heparin-induced thrombocytopenia Other congenital or acquired thrombophilia Stroke (< 1 month) Elective arthroplasty Hip, pelvis, or leg fracture Acute spinal cord injury (< 1 month) Prophylaxis Regimen Total Risk Factor Score Risk Level Prophylaxis Regimen 0-1 Low Early ambulation 2 Moderate Order ONE of the following: *Sequential Compression Device (SCD) *Heparin 5000 units SQ BID 3-4 Higher Order ONE of the following medications: *Heparin 5000 units SQ TID *Enoxaparin/Lovenox 40 mg SQ daily (WT < 150 kg, CrCl > 30 mL/min) *Enoxaparin/Lovenox 30 mg SQ daily (WT < 150 kg, CrCl > 10-29 mL/min) *Enoxaparin/Lovenox 30 mg SQ BID (WT < 150 kg, CrCl > 30 mL/min) AND/OR *Sequential Compression Device (SCD) 5 or more Highest Order ONE of the following medications: *Heparin 5000 units SQ TID (Preferred with Epidurals) *Enoxaparin/Lovenox 40 mg SQ daily (WT < 150 kg, CrCl > 30 mL/min) *Enoxaparin/Lovenox 30 mg SQ daily (WT < 150 kg, CrCl > 10-29 mL/min) *Enoxaparin/Lovenox 30 mg SQ BID (WT < 150 kg, CrCl > 30 mL/min) AND *Sequential Compression Device (SCD) Assessment and Plan Problem List: (1) Acute pancreatitis ICD Code: K85.90 - Acute pancreatitis without necrosis or infection, unspecified Assessment and Plan Severe sepsis Patient criteria with leukocytosis, tachycardia, pancreatitis, elevated lactic acid level Patient started on Cipro IV every 12 hours Continue trend lactic acid level Obtain blood cultures Follow CBC Acute pancreatitis CT scan does indicate induration surrounding the second portion of duodenum and the pancreatic head Obtain pancreatic ultrasound Continue nothing by mouth Continue IV fluids, pain control Continue to trend lipase level Hyperglycemia Could be secondary to acute pancreatitis, will obtain hemoglobin A1c Accu-Cheks with sliding scale insulin Atrial fibrillation Continue home medications Patient anticoagulated with Eliquis Chronic obstructive pulmonary disease Continue O2 supplementation maintain O2 sats greater 92% Duo nebs as needed Incentive spirometry Continue home medications DVT prevention Patient is on Eliquis This note was transcribed by alma Juárez. I, Dr. Bertin Mcneil personally performed the history, physical exam, and medical decision making; and confirmed the accuracy of the information in the transcribed note. Authenticated by Dr. Bertin Mcneil on 08/11/17 at 10:59. Code Status Full code Discussed Condition With Patient, ED physician Physician Certification 2 Midnight Certification Type: Admission for Inpatient Services Order for Inpatient Services The services are ordered in accordance with Medicare regulations or non- Medicare payer requirements, as applicable. In the case of services not specified as inpatient-only, they are appropriately provided as inpatient services in accordance with the 2-midnight benchmark. Estimated LOS (days): 2 days is the estimated time the patient will need to remain in the hospital, assuming treatment plan goals are met and no additional complications. Post-Hospital Plan: Not yet determined Guanakito Juárez Aug 11, 2017 11:00 Bertin Mcneil MD Aug 11, 2017 11:00
[2017-08-11] MEDS ORDERED: LORazepam 2 MG TAB PO PRN (11:15)
[2017-08-11] MEDS ORDERED: FLUMAZENIL 0.5 MG/5 ML VIAL IV PUSH PRN (11:15)
[2017-08-11] MEDS ORDERED: LORazepam 2 MG/ML VIAL IV PUSH PRN ×2 (11:15)
[2017-08-11] MEDS ORDERED: DOCUSATE SODIUM 50 MG/SENNA 8.6 MG TAB PO PRN (11:45)
[2017-08-11] MEDS: SODIUM CHLOR 0.9% 1000 ML INJ 1,000 ML IV SCH ×2 (11:48→22:34)
[2017-08-11] MEDS: INSULIN ASPART SUPPLEMENTAL SCALE SQ SCH ×3 (12:00→20:22)
--- NOTE | 2017-08-11 12:12 | RADRPT ---
EXAM DATE/TIME: 08/11/2017 11:30 [facility] COMPARISON: No previous studies available for comparison. INDICATIONS : Right upper quadrant pain. MEDICAL HISTORY : Diverticulitis. Hernia, hiatal. Gastroesophageal reflux disease. EROH abuse. COPD. Atrial fibrillatio n. Dyspnea. SURGICAL HISTORY : Cholecystectomy. ENCOUNTER: Initial ACUITY: 1 day PAIN SCORE: 8/10 LOCATION: Right upper quadrant MEASUREMENTS: LIVER: 18.4 cm length COMMON DUCT: Non-visualized RIGHT KIDNEY: 11.6 x 5.6 x 6.6 cm FINDINGS: LIVER: Course heterogeneous echotexture throughout the liver without focal solid mass. The significant atte nuation of the sound beam is of course through the liver. Hepatopedal flow seen the portal vein. In cidental note of a 4 by 8mm cyst in the left lobe. COMMON DUCT: Common bile duct is not identified. GALLBLADDER: Cholecystectomy PANCREAS: Not well seen. RIGHT KIDNEY: No evidence of hydronephrosis, stone, or mass. CONCLUSION: 1. Hepatomegaly with coarse increased echotexture and increased acoustic attenuation. No focal solid lesions. Small left lobe cyst. 2. Cholecystectomy. The common bile duct is not identified and cannot be measured. Last Kaur MD on August 11, 2017 at 12:07 Board Certified Radiologist. This report was verified electronically.
[2017-08-11] MEDS: CIPROFLOXACIN 400 MG PREMIX 200 ML IV SCH ×2 (12:50→23:30)
[2017-08-11] MEDS: HYDROmorphone HCL PF 2 MG/ML VIAL IV PUSH PRN ×3 (14:31→22:36)
[2017-08-11] MEDS: APIXABAN 5 MG TABLET PO SCH (17:57)
[2017-08-11] MEDS: NICOTINE 21 MG/24 HR PATCH T-DERMAL SCH (17:58)
[2017-08-11] MEDS: SODIUM CHLORIDE 0.9% FLUSH 10 ML FLUSH IV FLUSH SCH (20:22)
--- NOTE | 2017-08-11 21:26 | EKG ---
Date Performed: 08/11/2017 Time Performed: 08:39:40 PTAGE: 61 years EKG: ATRIAL FIBRILLATION WITH RAPID VENTRICULAR RESPONSE INCOMPLETE RIGHT BUNDLE BRANCH BLOCK AB NORMAL RHYTHM ECG PREVIOUS TRACING : 01/03/2016 11.41 No significant change from previous tracing noted. DOCTOR: Jj Hollis Interpretating Date/Time 08/11/2017 21:24:41
[2017-08-12] VITALS (26 sets, daily range): BP systolic 94–137; BP diastolic 59–93; PULSE 90–142; RESP 13–28; TEMP 97.6–98.7; O2SAT 91–96
[2017-08-12] MEDS ORDERED: DILTIAZEM HCL 25 MG/5 ML VIAL IV ONE
[2017-08-12] MEDS: SODIUM CHLOR 0.9% 1000 ML INJ 1,000 ML IV SCH ×4 (00:07→20:09)
[2017-08-12] MEDS: HYDROmorphone HCL PF 2 MG/ML VIAL IV PUSH PRN ×6 (02:43→23:38)
[2017-08-12 06:03] LABS: AUTOMATED NEUTROPHIL # 13.3 TH/MM3 (1.8-7.7); BASOPHIL % 0.3 % (0.0-2.0); EOSINOPHIL # 0.3 TH/MM3 (0-0.4); EOSINOPHIL % 1.7 % (0.0-4.0); HEMATOCRIT 41.2 % (39.0-51.0); LYMPHOCYTE # 1.4 TH/MM3 (1.0-4.8); MEAN CELL VOLUME 90.4 FL (80.0-100.0); MEAN CORPUSCULAR HEMOGLOBIN 29.6 PG (27.0-34.0); MEAN CORPUSCULAR HGB CONC 32.7 % (32.0-36.0); PLATELET COUNT 320 TH/MM3 (150-450); RED BLOOD COUNT 4.56 MIL/MM3 (4.50-5.90); RED CELL DISTRIBUTION WIDTH 13.3 % (11.6-17.2); WHITE BLOOD COUNT 15.6 TH/MM3 (4.0-11.0)
[2017-08-12 06:18] LABS: HEMO FLAGS DIFF FINAL
[2017-08-12 06:20] LABS: CHLORIDE 104 MEQ/L (98-107); POTASSIUM 4.8 MEQ/L (3.5-5.1); SODIUM (NA) 138 MEQ/L (136-145)
[2017-08-12 06:24] LABS: ANION GAP 6 MEQ/L (5-15); BICARBONATE 27.6 MEQ/L (21.0-32.0); BLOOD UREA NITROGEN 9 MG/DL (7-18)
[2017-08-12 06:27] LABS: ALT (GPT) 43 U/L (12-78); AST (GOT) 25 U/L (15-37); GLOMERULAR FILTRATION RATE 80 ML/MIN (>89)
[2017-08-12 06:28] LABS: TOTAL BILIRUBIN ADULT 1.3 MG/DL (0.2-1.0)
[2017-08-12 06:30] LABS: ALKALINE PHOSPHATASE 73 U/L (45-117)
[2017-08-12] MEDS: INSULIN ASPART SUPPLEMENTAL SCALE SQ SCH ×4 (08:00→21:00)
[2017-08-12] MEDS: APIXABAN 5 MG TABLET PO SCH ×2 (08:14→21:21)
[2017-08-12] MEDS: THIAMINE HCL 100 MG TAB PO SCH (08:14)
[2017-08-12] MEDS: PANTOPRAZOLE SOD 40 MG DELAYED RELEASE TAB PO SCH (08:14)
[2017-08-12] MEDS: SODIUM CHLORIDE 0.9% FLUSH 10 ML FLUSH IV FLUSH SCH ×2 (08:14→21:00)
[2017-08-12] MEDS: REMOVE OLD PATCH T-DERMAL SCH (08:15)
[2017-08-12] MEDS: BUDESONIDE-FORMOTEROL 160/4.5 MCG INHALER INH SCH (08:15)
[2017-08-12] MEDS: NICOTINE 21 MG/24 HR PATCH T-DERMAL SCH (08:15)
[2017-08-12] MEDS ORDERED: METOPROLOL SUCCINATE 50 MG EXTENDED RELEASE TAB PO SCH (09:00)
--- NOTE | 2017-08-12 09:18 | HHI.PR ---
Subjective Remarks Follow-up severe sepsis/acute pancreatitis 08/12/17-patient seen and examined, reports improvement of abdominal pain now down to 6/10 in intensity; only pain to his back + RUQ; patient was living Cardize IV 1 last night secondary to A. fib with RVR and denies any chest pain or heart palpitation. Only complains of nausea this morning Objective Vitals Vital Signs Date Time Temp Pulse Resp B/P (MAP) Pulse Ox O2 Delivery O2 Flow Rate FiO2 08/12/17 08:00 98.1 109 18 121/70 (87) 94 08/12/17 04:00 97.6 117 20 117/72 (87) 96 08/12/17 01:00 115 08/11/17 23:43 98.0 117 16 142/76 (98) 99 08/11/17 23:40 147 08/11/17 21:47 97.9 71 18 129/79 (96) 98 08/11/17 20:00 114 08/11/17 16:00 98.2 97 22 169/73 (105) 96 08/11/17 15:57 51 08/11/17 15:01 20 08/11/17 14:30 109 08/11/17 12:35 97.8 101 20 162/96 (118) 98 08/11/17 12:27 08/11/17 11:55 104 17 149/97 (114) 98 Room Air 08/11/17 10:23 17 08/11/17 10:20 122 17 172/93 (119) 97 Room Air 08/11/17 09:33 16 08/11/17 09:13 126 18 119/85 (96) 100 Room Air I/O 08/11/17 08/11/17 08/11/17 08/12/17 08/12/17 08/12/17 07:00 15:00 23:00 07:00 15:00 23:00 Intake Total 125 ml 1971 ml 1538 ml Output Total 725 ml Balance 125 ml 1971 ml 813 ml Intake Oral 0 ml IV Total 125 ml 986 ml 1538 ml Tube Feeding 585 ml Other 400 ml Output Urine Total 725 ml # Voids 5 2 # Bowel Movements 0 Result Diagram: 08/12/17 0508/12/17 05 Imaging Last Impressions Chest X-Ray 08/11/17 09 Signed Impressions: Service Date/Time: Friday, August 11, 2017 21:37 - CONCLUSION: 1. Cardiomegaly without radiographic evidence of congestive failure. 2. No focal infiltrates seen. Last Kaur MD Abdomen/Pelvis CT 08/11/17 0857 Signed Impressions: Service Date/Time: Friday, August 11, 2017 09:50 - CONCLUSION: 1. There is some mild induration of the fat of the mesentery in the right upper quadrant surrounding the 2nd portion of the duodenum and head of the pancreas. No dilation of the distal common bile duct. This is of uncertain significance. Recommend correlation with clinical labs for possible pancreatitis. 2. Severe steatosis of the liver, stable in appearance from 2016. Last Kaur MD Gall Bladder Ultrasound 08/11/17 0000 Signed Impressions: Service Date/Time: Friday, August 11, 2017 11:30 - CONCLUSION: 1. Hepatomegaly with coarse increased echotexture and increased acoustic attenuation. No focal solid lesions. Small left lobe cyst. 2. Cholecystectomy. The common bile duct is not identified and cannot be measured. Last Kaur MD Objective Remarks GENERAL: NAD SKIN: Warm and dry. HEAD: Normocephalic. EYES: No scleral icterus. No injection or drainage. NECK: Supple, trachea midline. No JVD or lymphadenopathy. CARDIOVASCULAR: Regular rate and rhythm without murmurs, gallops, or rubs. RESPIRATORY: Breath sounds equal bilaterally. No accessory muscle use. GASTROINTESTINAL: Abdomen soft, non-tender, nondistended. MUSCULOSKELETAL: No cyanosis, or edema. BACK: tender without obvious deformity. No CVA tenderness. A/P Problem List: (1) Acute pancreatitis ICD Code: K85.90 - Acute pancreatitis without necrosis or infection, unspecified Assessment and Plan 61-year-old man with Severe sepsis Patient criteria with leukocytosis, tachycardia, pancreatitis, elevated lactic acid level Patient started on Cipro IV every 12 hours Continue trend lactic acid level-now resolved Acute pancreatitis CT scan does indicate induration surrounding the second portion of duodenum and the pancreatic head Continue IV fluids, pain control Continue to trend lipase level Start clear liquid Hyperglycemia Could be secondary to acute pancreatitis, will obtain hemoglobin A1c Accu-Cheks with sliding scale insulin Atrial fibrillation with RVR He went to . [facility] with RVR overnight Start Cardizem drip today 08/12/17 transferred to intermediate care Hold Lopressor and Continue with Rick Chronic obstructive pulmonary disease Continue O2 supplementation maintain O2 sats greater 92% Duo nebs as needed Incentive spirometry Continue home medications Alcohol abuse Continue Rally pack, CIWA and Librium protocol DVT prevention Patient is on Bertin Jiménez MD Aug 12, 2017 09:18
[2017-08-12] MEDS ORDERED: INFLUENZA VIRUS VACCINE (QUADRIVALENT) 0.5 ML SYR IM ONE (10:00)
[2017-08-12] MEDS: DILTIAZEM INJ 125 MG in SODIUM CHLORIDE 0.9% INJ 100 ML IV PRN (11:06)
[2017-08-12] MEDS: LORazepam 1 MG TAB PO PRN (11:59)
[2017-08-12] MEDS: CIPROFLOXACIN 400 MG PREMIX 200 ML IV SCH ×2 (13:13→23:38)
[2017-08-12 16:43] LABS: HEMOGLOBIN A1a 1.3 %; HEMOGLOBIN A1b 1.6 %; HEMOGLOBIN Ao 83.5 %; HEMOGLOBIN LA1C 2.1 %
[2017-08-12] MEDS: ALBUTEROL SULFATE 90 MCG/ACT HFA 8 GM INHALER INH PRN (17:35)
[2017-08-13] VITALS (28 sets, daily range): BP systolic 104–160; BP diastolic 69–106; PULSE 94–138; RESP 11–26; TEMP 96.8–98.8; O2SAT 94–99
[2017-08-13] MEDS: LORazepam 2 MG/ML VIAL IV PUSH PRN ×2 (02:30→08:26)
[2017-08-13] MEDS: SODIUM CHLOR 0.9% 1000 ML INJ 1,000 ML IV SCH ×3 (03:28→16:16)
[2017-08-13] MEDS: ALBUTEROL SULFATE 90 MCG/ACT HFA 8 GM INHALER INH PRN ×3 (04:18→17:11)
[2017-08-13] MEDS: DILTIAZEM INJ 125 MG in SODIUM CHLORIDE 0.9% INJ 100 ML IV PRN (04:54)
[2017-08-13] MEDS: HYDROmorphone HCL PF 2 MG/ML VIAL IV PUSH PRN ×3 (05:06→13:47)
[2017-08-13 05:41] LABS: AUTOMATED NEUTROPHIL # 12.1 TH/MM3 (1.8-7.7); BASOPHIL # 0.3 TH/MM3 (0-0.2); BASOPHIL % 2.4 % (0.0-2.0); EOSINOPHIL # 0.2 TH/MM3 (0-0.4); EOSINOPHIL % 1.7 % (0.0-4.0); HEMATOCRIT 35.3 % (39.0-51.0); LYMPH % 8.9 % (9.0-44.0); LYMPHOCYTE # 1.3 TH/MM3 (1.0-4.8); MEAN CELL VOLUME 89.8 FL (80.0-100.0); MEAN CORPUSCULAR HEMOGLOBIN 30.7 PG (27.0-34.0); MEAN CORPUSCULAR HGB CONC 34.2 % (32.0-36.0); MONO % 3.7 % (0.0-8.0); NEUT % 83.3 % (16.0-70.0); PLATELET COUNT 239 TH/MM3 (150-450); RED BLOOD COUNT 3.94 MIL/MM3 (4.50-5.90); RED CELL DISTRIBUTION WIDTH 12.8 % (11.6-17.2); WHITE BLOOD COUNT 14.4 TH/MM3 (4.0-11.0)
[2017-08-13 05:49] LABS: HEMO FLAGS AUTO DIFF
[2017-08-13 06:50] LABS: ALKALINE PHOSPHATASE 71 U/L (45-117); ALT (GPT) 47 U/L (12-78); ANION GAP 9 MEQ/L (5-15); AST (GOT) 37 U/L (15-37); BICARBONATE 22.6 MEQ/L (21.0-32.0); BLOOD UREA NITROGEN 6 MG/DL (7-18); CHLORIDE 102 MEQ/L (98-107); GLOMERULAR FILTRATION RATE 115 ML/MIN (>89); POTASSIUM 3.7 MEQ/L (3.5-5.1); SODIUM (NA) 134 MEQ/L (136-145)
[2017-08-13 07:16] LABS: BANDS 5 % (0-6); EOSINOPHILS 2 % (0-4); PLATELET ESTIMATE SMEAR NORMAL (NORMAL); PLATELET MORPHOLOGY NORMAL (NORMAL); POLYS (SEG NEUTROPHILS) 78 % (16-70); SCAN/DIFF FINAL DIFF MANUAL; WBC DIFF SAMPLE 100
[2017-08-13] MEDS: INSULIN ASPART SUPPLEMENTAL SCALE SQ SCH ×3 (08:00→16:16)
[2017-08-13] MEDS: THIAMINE HCL 100 MG TAB PO SCH (08:12)
[2017-08-13] MEDS: PANTOPRAZOLE SOD 40 MG DELAYED RELEASE TAB PO SCH (08:12)
[2017-08-13] MEDS: APIXABAN 5 MG TABLET PO SCH ×2 (08:12→21:05)
[2017-08-13] MEDS: NICOTINE 21 MG/24 HR PATCH T-DERMAL SCH ×2 (08:13→09:00)
[2017-08-13] MEDS: SODIUM CHLORIDE 0.9% FLUSH 10 ML FLUSH IV FLUSH SCH ×2 (08:13→21:06)
[2017-08-13] MEDS: REMOVE OLD PATCH T-DERMAL SCH (08:13)
[2017-08-13] MEDS ORDERED: INFLUENZA VIRUS VACCINE (QUADRIVALENT) 0.5 ML SYR IM ONE (10:00)
[2017-08-13] MEDS: BUDESONIDE-FORMOTEROL 160/4.5 MCG INHALER INH SCH (10:46)
[2017-08-13] MEDS ORDERED: BISACODYL EC 5 MG TABEC PO ONE (12:00)
[2017-08-13] MEDS: METOPROLOL SUCCINATE 50 MG EXTENDED RELEASE TAB PO SCH (12:10)
--- NOTE | 2017-08-13 12:12 | HHI.PR ---
Subjective Remarks Written by Mabel Mo, acting as scribe for Dr. Kimball on 08/14/17 at 1200. Follow up acute pancreatitis. Patient seen and examined, lying in bed comfortably in no apparent distress. States pain has improved with continued mild right sided abdominal pain. Has been tolerating PO clear liquids. Denies any nausea or vomiting. Reportedly has not had a BM for almost 5 days. Heart rate has remained controlled on monitor. Denies any chest pain, headache, shortness of breath. Objective Vitals Vital Signs Date Time Temp Pulse Resp B/P (MAP) Pulse Ox O2 Delivery O2 Flow Rate FiO2 08/13/17 09:00 98 16 08/13/17 08:02 102 16 123/69 (87) 08/13/17 08:00 100 08/13/17 08:00 97.8 102 21 108/71 (83) 08/13/17 07:29 108 21 118/71 (87) 96 08/13/17 07:00 118 24 95 08/13/17 06:00 103 08/13/17 05:36 16 08/13/17 04:54 106 104/73 08/13/17 04:00 94 08/13/17 04:00 98.8 108 13 140/73 (95) 94 08/13/17 03:35 106 23 150/86 (107) 94 08/13/17 03:35 106 150/86 08/13/17 03:00 122 08/13/17 02:01 100 11 123/79 (94) 08/13/17 02:00 103 08/13/17 01:31 100 15 104/75 (85) 08/13/17 01:01 100 14 144/77 (99) 08/13/17 01:00 116 08/13/17 00:01 106 14 105/70 (82) 96 08/13/17 00:00 110 08/12/17 23:09 104 08/12/17 22:00 112 08/12/17 22:00 102 15 113/70 (84) 08/12/17 21:30 100 19 136/64 (88) 96 08/12/17 21:00 107 08/12/17 21:00 102 21 134/85 (101) 95 08/12/17 20:30 114 22 133/76 (95) 94 08/12/17 20:00 110 08/12/17 20:00 98.7 102 13 123/68 (86) 95 08/12/17 19:30 106 16 137/80 (99) 93 08/12/17 19:30 95 Nasal Cannula 2.00 08/12/17 19:03 116 21 113/59 (77) 96 08/12/17 19:00 108 08/12/17 19:00 106 28 08/12/17 18:58 98.2 116 21 113/59 (77) 96 08/12/17 18:00 100 08/12/17 17:30 104 08/12/17 17:00 90 08/12/17 16:00 94 08/12/17 15:00 92 21 94/60 (71) 93 08/12/17 15:00 92 08/12/17 14:00 100 08/12/17 14:00 100 16 112/67 (82) 91 08/12/17 13:30 106 26 127/70 (89) 08/12/17 13:00 98.3 114 24 96/64 (75) 94 08/12/17 13:00 114 08/12/17 12:30 108 14 132/74 (93) 94 08/12/17 12:00 108 16 134/84 (101) 94 08/12/17 12:00 108 I/O 08/12/17 08/12/17 08/12/17 08/13/17 08/13/17 08/13/17 07:00 15:00 23:00 07:00 15:00 23:00 Intake Total 1538 ml 880 ml 1480 ml 3843 ml 531 ml Output Total 725 ml 200 ml 575 ml 600 ml 400 ml Balance 813 ml 680 ml 905 ml 3243 ml 131 ml Intake Oral 480 ml 480 ml IV Total 1538 ml 400 ml 1000 ml 3843 ml 531 ml Output Urine Total 725 ml 200 ml 575 ml 600 ml 400 ml # Voids 2 # Bowel Movements 0 0 Result Diagram: 08/13/17 0455 08/13/17 0455 Imaging Last Impressions Chest X-Ray 08/11/17 0907 Signed Impressions: Service Date/Time: Friday, August 11, 2017 21:37 - CONCLUSION: 1. Cardiomegaly without radiographic evidence of congestive failure. 2. No focal infiltrates seen. Last Kaur MD Abdomen/Pelvis CT 08/11/17 0857 Signed Impressions: Service Date/Time: Friday, August 11, 2017 09:50 - CONCLUSION: 1. There is some mild induration of the fat of the mesentery in the right upper quadrant surrounding the 2nd portion of the duodenum and head of the pancreas. No dilation of the distal common bile duct. This is of uncertain significance. Recommend correlation with clinical labs for possible pancreatitis. 2. Severe steatosis of the liver, stable in appearance from 2016. Last Kaur MD Gall Bladder Ultrasound 08/11/17 0000 Signed Impressions: Service Date/Time: Friday, August 11, 2017 11:30 - CONCLUSION: 1. Hepatomegaly with coarse increased echotexture and increased acoustic attenuation. No focal solid lesions. Small left lobe cyst. 2. Cholecystectomy. The common bile duct is not identified and cannot be measured. Last Kaur MD Objective Remarks GENERAL: Well-nourished, well-developed patient male patient lying in bed in nad. SKIN: Warm and dry. No rash. HEENT: Normocephalic. PERRL. intact EOMs. No scleral icterus. No injection or drainage. NECK: Supple, trachea midline. No JVD or lymphadenopathy. CARDIOVASCULAR: Regular rate and rhythm without murmurs, gallops, or rubs. RESPIRATORY: Breath sounds equal bilaterally. No accessory muscle use. GASTROINTESTINAL: Abdomen firm, non-tender, round. Bowel sounds hypoactive x 4 q. EXTREMITIES: No cyanosis, or edema. NEUROLOGICAL: Awake, alert, and oriented x 3. Non-focal. A/P Problem List: (1) Acute pancreatitis ICD Code: K85.90 - Acute pancreatitis without necrosis or infection, unspecified Assessment and Plan 61-year-old man with Acute pancreatitis suspect secondary to chronic alcohol abuse Abdomen/pelvis CT reviewed does indicate induration surrounding the second portion of duodenum and the pancreatic head. Does not appear to be infectious, no colitis seen on imaging, patient improving, will DC IV antibiotics. Afebrile. WBC trending down, likely related to acute pancreatitis. Lactic acid now WNL. Lipase trending down, 4600 --> 574. Has been tolerating clear liquid diet, will advance as tolerated. If improvement seen by the end of the day will consider discharge. Continue to monitor. Continue IVF for now. Hyperglycemia, now controlled. Could be secondary to acute pancreatitis. Hemoglobin A1c 6.6 Will DC accu checks, have been WNL. Atrial fibrillation with RVR, now controlled. Episode of a fib RVR two days ago. Started on a Cardizem gtt which has now been weaned off and home Metoprolol has been resumed. Will continue to monitor on telemetry. Continue with Eliquis Chronic obstructive pulmonary disease, stable Continue O2 supplementation maintain O2 sats greater 92%, patient has not required O2. Duo nebs as needed Incentive spirometry Continue home medications Alcohol abuse, chronic Continue CIWA and Librium protocol Patient has been educated regarding importance of cessation. DVT prevention: SCDs. Eliquis. Encourage ambulation. Mabel Mo Aug 13, 2017 12:12 Nilda Kimball MD Aug 14, 2017 13:06
[2017-08-13] MEDS: ACETAMINOPHEN/HYDROcodone 325 MG/5 MG TAB PO PRN ×2 (17:12→21:05)
[2017-08-13] MEDS ORDERED: HYDR-3516 PO (17:47)
[2017-08-13] MEDS ORDERED: DILTIAZEM HCL 25 MG/5 ML VIAL IV ONE (23:00)
[2017-08-14] VITALS (24 sets, daily range): BP systolic 127–161; BP diastolic 75–107; PULSE 92–121; RESP 18–31; TEMP 97.6–99.5; O2SAT 92–97
[2017-08-14] MEDS: DILTIAZEM HCL 30 MG TAB PO SCH ×3 (00:05→11:58)
[2017-08-14] MEDS: SODIUM CHLOR 0.9% 1000 ML INJ 1,000 ML IV SCH (00:05)
[2017-08-14] MEDS: RESP: LEVALBUTEROL HYDROCHLORIDE 1.25 MG/3 ML NEB (PRN) NEB ×2 (00:13→07:50)
[2017-08-14] MEDS: LORazepam 2 MG/ML VIAL IV PUSH PRN ×5 (00:47→16:10)
[2017-08-14] MEDS: SODIUM CHLORIDE 0.9% FLUSH 10 ML FLUSH IV FLUSH PRN ×3 (00:47→04:57)
[2017-08-14] MEDS: ACETAMINOPHEN/HYDROcodone 325 MG/5 MG TAB PO PRN ×4 (02:40→20:51)
[2017-08-14] MEDS ORDERED: DILTIAZEM HCL 25 MG/5 ML VIAL IV PUSH ONE (05:30)
[2017-08-14] MEDS: THIAMINE HCL 100 MG TAB PO SCH (08:18)
[2017-08-14] MEDS: METOPROLOL SUCCINATE 50 MG EXTENDED RELEASE TAB PO SCH (08:18)
[2017-08-14] MEDS: APIXABAN 5 MG TABLET PO SCH ×2 (08:18→20:50)
[2017-08-14] MEDS: PANTOPRAZOLE SOD 40 MG DELAYED RELEASE TAB PO SCH (08:18)
[2017-08-14] MEDS: REMOVE OLD PATCH T-DERMAL SCH (08:19)
[2017-08-14] MEDS: NICOTINE 21 MG/24 HR PATCH T-DERMAL SCH (08:21)
[2017-08-14] MEDS: SODIUM CHLORIDE 0.9% FLUSH 10 ML FLUSH IV FLUSH SCH ×2 (08:22→21:00)
[2017-08-14] MEDS: BUDESONIDE-FORMOTEROL 160/4.5 MCG INHALER INH SCH (08:22)
[2017-08-14] MEDS ORDERED: SENNOSIDES 8.6 MG TAB PO PRN (08:30)
[2017-08-14] MEDS ORDERED: LACTULOSE SYRUP 20 GM/30 ML CUP PO PRN (08:30)
[2017-08-14] MEDS ORDERED: MAGNESIUM HYDROXIDE SUSP 30 ML CUP PO PRN (08:30)
[2017-08-14 09:12] LABS: AUTOMATED NEUTROPHIL # 10.6 TH/MM3 (1.8-7.7); BASOPHIL # 0.1 TH/MM3 (0-0.2); BASOPHIL % 0.5 % (0.0-2.0); EOSINOPHIL # 0.2 TH/MM3 (0-0.4); EOSINOPHIL % 1.2 % (0.0-4.0); HEMATOCRIT 34.8 % (39.0-51.0); LYMPH % 10.5 % (9.0-44.0); LYMPHOCYTE # 1.4 TH/MM3 (1.0-4.8); MEAN CELL VOLUME 91.8 FL (80.0-100.0); MEAN CORPUSCULAR HGB CONC 32.6 % (32.0-36.0); NEUT % 82.8 % (16.0-70.0); PLATELET COUNT 296 TH/MM3 (150-450); RED BLOOD COUNT 3.79 MIL/MM3 (4.50-5.90); RED CELL DISTRIBUTION WIDTH 13.3 % (11.6-17.2); WHITE BLOOD COUNT 12.9 TH/MM3 (4.0-11.0)
[2017-08-14 09:13] LABS: POTASSIUM 3.3 MEQ/L (3.5-5.1)
[2017-08-14 09:16] LABS: HEMO FLAGS DIFF FINAL
[2017-08-14 09:17] LABS: BICARBONATE 23.9 MEQ/L (21.0-32.0)
--- NOTE | 2017-08-14 09:19 | RADRPT ---
EXAM DATE/TIME: 08/14/2017 08:36 [facility] COMPARISON: CT ABDOMEN & PELVIS W CONTRAST, August 11, 2017, 9:50. CHEST SINGLE AP, August 11, 2017, 9:08. INDICATIONS : Short of breath, chest pain. MEDICAL HISTORY : Chronic obstructive pulmonary disease. Gastroesophageal reflux disease. Esophageal polyps. Hiata l hernia. SURGICAL HISTORY : Cholecystectomy. ENCOUNTER: Subsequent ACUITY: 3 days PAIN SCORE: 3/10 LOCATION: Bilateral chest FINDINGS: The lungs are stable and grossly clear. Cardiac contours are unchanged ectatic for differences in pro jection with prominence of epicardial fat bilaterally. Pulmonary vascularity is normal. CONCLUSION: Stable chest appearance. Jonathan Shepard MD on August 14, 2017 at 9:16 Board Certified Radiologist. This report was verified electronically.
--- NOTE | 2017-08-14 10:17 | RADRPT ---
EXAM DATE/TIME: 08/14/2017 08:36 [place] COMPARISON: No previous studies available for comparison. INDICATIONS : Distention. MEDICAL HISTORY : Pancreatitis. Gastroesophageal reflux disease. 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 Esophageal polyps. Hiatal hernia. SURGICAL HISTORY : Cholecystectomy. ENCOUNTER: Subsequent ACUITY: 3 days PAIN SCORE: 3/10 LOCATION: Bilateral abdomen FINDINGS: Supine views of the abdomen were performed. The abdominal bowel gas pattern is normal. No abnormal masses, calcifications, or organomegaly is seen. The osseous structures are unremarkable. CONCLUSION: No dilated loops of bowel observed. Last Kohli Jr., MD on August 14, 2017 at 10:15 Board Certified Radiologist. This report was verified electronically.
--- NOTE | 2017-08-14 10:35 | HHI.PR ---
Subjective Remarks Written by Mabel Mo, acting as scribe for Dr. Crenshaw on 08/14/17 at 1025. Follow up acute pancreatitis. Patient seen and examined, lying in bed on supplemental O2. Patient complaints of worsening dyspnea and wheezing. Reports from bedside RN that last evening patient displayed signs of alcohol withdrawal with increasing agitation and belligerence and tachycardia, requiring Ativan per CIWA protocol. Abdominal pain is reportedly better. Has been tolerating PO intake today with one bout of emesis last evening. Afebrile. No BM since presentation. Has been passing gas. Minimal PO intake since admission, continue to monitor. Objective Vitals Vital Signs Date Time Temp Pulse Resp B/P (MAP) Pulse Ox O2 Delivery O2 Flow Rate FiO2 08/14/17 10:22 97.7 08/14/17 07:51 96 Nasal Cannula 2.00 08/14/17 07:00 98.7 08/14/17 06:45 103 26 140/80 (100) 97 08/14/17 06:25 97 Nasal Cannula 3.00 08/14/17 06:00 103 08/14/17 05:45 112 28 140/80 (100) 95 08/14/17 05:34 99.5 120 26 161/88 (112) 95 08/13/17 23:45 99 155/89 (111) 99 08/13/17 23:15 96 Nasal Cannula 2.00 08/13/17 23:12 124 145/70 (95) 94 08/13/17 22:50 96.8 127 24 155/106 (122) 94 08/13/17 22:45 130 08/13/17 22:30 96.8 127 24 155/106 (122) 98 08/13/17 22:30 94 Nasal Cannula 2.00 08/13/17 22:15 16 08/13/17 21:00 98 08/13/17 21:00 97.2 138 22 142/85 (104) 96 08/13/17 19:50 94 21 08/13/17 19:28 130 26 160/88 (112) 96 08/13/17 16:00 98.3 108 21 133/91 (105) 96 08/13/17 16:00 108 08/13/17 12:00 104 08/13/17 12:00 97.7 104 18 138/75 (96) 96 I/O 08/13/17 08/13/17 08/13/17 08/14/17 08/14/17 08/14/17 07:00 15:00 23:00 07:00 15:00 23:00 Intake Total 3843 ml 1117 ml 1423 ml 447 ml Output Total 600 ml 600 ml 400 ml 1100 ml Balance 3243 ml 517 ml 1023 ml -653 ml Intake Oral 520 ml 320 ml IV Total 3843 ml 597 ml 1103 ml 447 ml Output Urine Total 600 ml 600 ml 400 ml 1100 ml Result Diagram: 08/14/17 0903 08/14/17 0903 Imaging Last Impressions Chest X-Ray 08/14/17 0000 Signed Impressions: Service Date/Time: Monday, August 14, 2017 08:36 - CONCLUSION: Stable chest appearance. Jonathan Shepard MD Abdomen X-Ray 08/14/17 0000 Signed Impressions: Service Date/Time: Monday, August 14, 2017 08:36 - CONCLUSION: No dilated loops of bowel observed. Last Kohli Jr., MD Abdomen/Pelvis CT 08/11/17 0857 Signed Impressions: Service Date/Time: Friday, August 11, 2017 09:50 - CONCLUSION: 1. There is some mild induration of the fat of the mesentery in the right upper quadrant surrounding the 2nd portion of the duodenum and head of the pancreas. No dilation of the distal common bile duct. This is of uncertain significance. Recommend correlation with clinical labs for possible pancreatitis. 2. Severe steatosis of the liver, stable in appearance from 2016. Last Kaur MD Gall Bladder Ultrasound 08/11/17 0000 Signed Impressions: Service Date/Time: Friday, August 11, 2017 11:30 - CONCLUSION: 1. Hepatomegaly with coarse increased echotexture and increased acoustic attenuation. No focal solid lesions. Small left lobe cyst. 2. Cholecystectomy. The common bile duct is not identified and cannot be measured. Last Kaur MD Objective Remarks GENERAL: Well-nourished, well-developed patient male patient lying in bed in nad. SKIN: Warm and dry. No rash. HEENT: Normocephalic. PERRL. intact EOMs. No scleral icterus. No injection or drainage. NECK: Supple, trachea midline. No JVD or lymphadenopathy. CARDIOVASCULAR: Regular rate and rhythm without murmurs, gallops, or rubs. RESPIRATORY: Breath sounds equal bilaterally. No accessory muscle use. GASTROINTESTINAL: Abdomen firm, non-tender, round. Bowel sounds hypoactive x 4 q. EXTREMITIES: No cyanosis, or edema. NEUROLOGICAL: Awake, alert, and oriented x 3. Non-focal. A/P Problem List: (1) Acute pancreatitis ICD Code: K85.90 - Acute pancreatitis without necrosis or infection, unspecified Assessment and Plan 61-year-old man with Acute pancreatitis suspect secondary to chronic alcohol abuse Abdomen/pelvis CT reviewed does indicate induration surrounding the second portion of duodenum and the pancreatic head. Does not appear to be infectious, no colitis seen on imaging, patient improving, will DC IV antibiotics. Afebrile. WBC trending down, 15.6-->14.4--> 12.9, likely related to acute pancreatitis. Lactic acid now WNL. Lipase trending down, 4600 --> 574-->551 Has been tolerating diet, continue to monitor. Pain improved. Continue IVF for now. Constipation Abdominal distention KUB ordered today and reviewed showing no dilated loops of bowel On bowel regimen Encouraged mobility and increase in PO fluids as tolerated. Continue IVF for now. Hypokalemia: K 3.3 doing. Supplementation ordered. Replete as needed. Follow BMP. Check a magnesium level. Hyperglycemia, now controlled. Could be secondary to acute pancreatitis. Hemoglobin A1c 6.6 Will DC accu checks, have been WNL. Atrial fibrillation with RVR, now controlled. Reports of increased heart rate overnight, slowed down with use of Ativan, thought to be related to alcohol withdrawal symptoms. Patient did have an episode of a fib RVR three days ago. Started on a Cardizem gtt which has now been weaned off and home Metoprolol has been resumed. Will continue to monitor on telemetry. Continue with Eliquis Chronic obstructive pulmonary disease Patient with continued need for O2 supplementation to maintain O2 sats greater 92%, currently on 2 L NC. Continue Duo nebs as needed. Xopenex added. Will start on Solumedrol IV. CXR ordered today and reviewed showing stable chest appearance. Encouraged use of incentive spirometry Continue home medications Alcohol abuse, chronic Increased agitation overnight requiring Ativan. Continue CIWA and Librium protocol. Patient has been educated regarding importance of cessation. DVT prevention: SCDs. Eliquis. Encourage ambulation. Attending Statement The exam, history, and the medical decision-making described in the above note were completed with my assistance as the dictating practitioner. I attest that I had a [id number] encounter with the patient on the same day, and personally performed all of the history, exam, or medical decision making. I reviewed and agree with the plan. Patient reports shortness of breath overnight but says he feels better this morning after breathing treatments. Overnight with increased work of breathing and rapid ventricular rate with A. fib/ COPD. Feels better this morning. Care plan discussed with nursing team Librium [facility] Mabel Trevizo cd Aug 14, 2017 10:35 Nilda Kimball MD Aug 14, 2017 13:09
[2017-08-14] MEDS ORDERED: POTASSIUM CHLORIDE 10 MEQ CONTROLLED RELEASE TAB PO ONE (11:15)
[2017-08-14] MEDS: methylPREDNISolone SOD SUCC 125 MG/2 ML VIAL IV PUSH SCH ×4 (11:58→23:32)
[2017-08-14] MEDS: POTASSIUM CHLORIDE 10 MEQ CONTROLLED RELEASE TAB PO SCH (11:58)
[2017-08-14] MEDS: RESP: ALBUTEROL 2.5 MG/IPRATROPIUM 0.5 MG NEB (SCH) NEB ×2 (13:30→20:10)
[2017-08-14] MEDS: DILTIAZEM-CD 120 MG CAP ER PO SCH (13:55)
[2017-08-14] MEDS: LORazepam 1 MG TAB PO PRN (20:50)
[2017-08-15] VITALS (44 sets, daily range): BP systolic 108–169; BP diastolic 74–104; PULSE 73–156; RESP 16–44; TEMP 97.1–98.5; O2SAT 91–99
[2017-08-15] MEDS: ACETAMINOPHEN/HYDROcodone 325 MG/5 MG TAB PO PRN ×4 (02:04→20:40)
[2017-08-15] MEDS: LORazepam 1 MG TAB PO PRN ×2 (02:04→10:30)
[2017-08-15 04:41] LABS: AUTOMATED NEUTROPHIL # 11.7 TH/MM3 (1.8-7.7); BASOPHIL # 0.1 TH/MM3 (0-0.2); EOSINOPHIL % 0.1 % (0.0-4.0); LYMPH % 3.9 % (9.0-44.0); LYMPHOCYTE # 0.5 TH/MM3 (1.0-4.8); MEAN CELL VOLUME 90.3 FL (80.0-100.0); MEAN CORPUSCULAR HGB CONC 33.2 % (32.0-36.0); MONO % 0.9 % (0.0-8.0); NEUT % 94.1 % (16.0-70.0); PLATELET COUNT 320 TH/MM3 (150-450); RED BLOOD COUNT 3.99 MIL/MM3 (4.50-5.90); RED CELL DISTRIBUTION WIDTH 13.1 % (11.6-17.2); WHITE BLOOD COUNT 12.4 TH/MM3 (4.0-11.0)
[2017-08-15 04:49] LABS: POTASSIUM 3.5 MEQ/L (3.5-5.1)
[2017-08-15 04:51] LABS: HEMO FLAGS DIFF FINAL
[2017-08-15 04:52] LABS: BICARBONATE 21.4 MEQ/L (21.0-32.0)
[2017-08-15] MEDS: methylPREDNISolone SOD SUCC 125 MG/2 ML VIAL IV PUSH SCH ×2 (05:27→10:31)
[2017-08-15] MEDS: RESP: ALBUTEROL 2.5 MG/IPRATROPIUM 0.5 MG NEB (SCH) NEB ×3 (07:48→19:41)
[2017-08-15] MEDS: SODIUM CHLORIDE 0.9% FLUSH 10 ML FLUSH IV FLUSH SCH ×2 (09:00→20:39)
[2017-08-15] MEDS: REMOVE OLD PATCH T-DERMAL SCH (09:00)
[2017-08-15] MEDS: NICOTINE 21 MG/24 HR PATCH T-DERMAL SCH (09:00)
[2017-08-15] MEDS: DILTIAZEM-CD 120 MG CAP ER PO SCH (09:42)
[2017-08-15] MEDS: APIXABAN 5 MG TABLET PO SCH ×2 (09:42→20:39)
[2017-08-15] MEDS: BUDESONIDE-FORMOTEROL 160/4.5 MCG INHALER INH SCH (09:42)
[2017-08-15] MEDS: POTASSIUM CHLORIDE 10 MEQ CONTROLLED RELEASE TAB PO SCH (09:42)
[2017-08-15] MEDS: PANTOPRAZOLE SOD 40 MG DELAYED RELEASE TAB PO SCH (09:42)
[2017-08-15] MEDS: METOPROLOL SUCCINATE 50 MG EXTENDED RELEASE TAB PO SCH (09:43)
[2017-08-15] MEDS: THIAMINE HCL 100 MG TAB PO SCH (09:43)
[2017-08-15] MEDS ORDERED: BISACODYL EC 5 MG TABEC PO ONE (10:00)
--- NOTE | 2017-08-15 11:39 | HHI.PR ---
Subjective Remarks Follow up acute pancreatitis and a fib RVR. Patient seen and examined, lying in bed in nad. On RA, O2 saturations 96%. Pain is well controlled. Patient complaints of heart palpitations. Monitor showing a fib with HR 130's. EKG ordered and reviewed. Denies any chest pain. Denies any shortness of breath, diaphoresis or nausea/vomiting. Has been eating well. Per nursing staff patient has continued to need Ativan for withdrawal symptoms. No BM yet. Will continue to monitor. Objective Vitals Vital Signs Date Time Temp Pulse Resp B/P (MAP) Pulse Ox O2 Delivery O2 Flow Rate FiO2 08/15/17 11:00 128 08/15/17 11:00 132 18 97 08/15/17 10:06 124 19 164/90 (114) 08/15/17 10:05 126 26 169/104 (125) 08/15/17 10:00 132 44 08/15/17 09:16 122 30 156/92 (113) 08/15/17 09:00 128 22 08/15/17 08:00 97.1 08/15/17 08:00 100 18 08/15/17 07:48 96 Nasal Cannula 2.00 08/15/17 07:00 112 08/15/17 07:00 Nasal Cannula 2.00 21 08/15/17 04:00 97.8 105 16 108/80 (89) 92 08/15/17 03:04 14 08/15/17 03:00 97 08/15/17 00:00 98.5 98 18 132/82 (99) 91 08/14/17 23:00 96 08/14/17 20:10 96 Nasal Cannula 2.00 08/14/17 20:00 97.6 92 18 131/95 (107) 95 08/14/17 19:00 99 Nasal Cannula 2.00 08/14/17 19:00 98 08/14/17 18:00 95 08/14/17 17:29 96 21 127/83 (98) 08/14/17 17:00 94 08/14/17 16:00 96 23 94 08/14/17 15:00 121 08/14/17 15:00 110 31 93 08/14/17 14:49 100 22 142/90 (107) 95 08/14/17 14:00 102 22 94 08/14/17 13:16 108 23 134/88 (103) 92 08/14/17 13:02 106 27 143/89 (107) 92 08/14/17 13:00 102 25 161/107 (125) 92 08/14/17 12:02 98 27 130/75 (93) 94 08/14/17 12:00 98.7 08/14/17 12:00 96 24 93 I/O 08/14/17 08/14/17 08/14/17 08/15/17 08/15/17 08/15/17 07:00 15:00 23:00 07:00 15:00 23:00 Intake Total 447 ml 189 ml 680 ml Output Total 1100 ml 1220 ml Balance -653 ml 189 ml -540 ml Intake Oral 680 ml IV Total 447 ml 189 ml Output Urine Total 1100 ml 1220 ml # Bowel Movements 0 Result Diagram: 08/15/17 0420 08/15/17 0420 Imaging Last Impressions Chest X-Ray 08/14/17 0000 Signed Impressions: Service Date/Time: Monday, August 14, 2017 08:36 - CONCLUSION: Stable chest appearance. Jonathan Shepard MD Abdomen X-Ray 08/14/17 0000 Signed Impressions: Service Date/Time: Monday, August 14, 2017 08:36 - CONCLUSION: No dilated loops of bowel observed. Last Kohli Jr., MD Abdomen/Pelvis CT 08/11/17 0857 Signed Impressions: Service Date/Time: Friday, August 11, 2017 09:50 - CONCLUSION: 1. There is some mild induration of the fat of the mesentery in the right upper quadrant surrounding the 2nd portion of the duodenum and head of the pancreas. No dilation of the distal common bile duct. This is of uncertain significance. Recommend correlation with clinical labs for possible pancreatitis. 2. Severe steatosis of the liver, stable in appearance from 2016. Last Kaur MD Gall Bladder Ultrasound 08/11/17 0000 Signed Impressions: Service Date/Time: Friday, August 11, 2017 11:30 - CONCLUSION: 1. Hepatomegaly with coarse increased echotexture and increased acoustic attenuation. No focal solid lesions. Small left lobe cyst. 2. Cholecystectomy. The common bile duct is not identified and cannot be measured. Last Kaur MD Objective Remarks GENERAL: Well-nourished, well-developed patient male patient lying in bed in nad. SKIN: Warm and dry. No rash. HEENT: Normocephalic. PERRL. intact EOMs. No scleral icterus. No injection or drainage. NECK: Supple, trachea midline. No JVD or lymphadenopathy. CARDIOVASCULAR: Regular rate and rhythm without murmurs, gallops, or rubs. RESPIRATORY: Breath sounds equal bilaterally. No accessory muscle use. GASTROINTESTINAL: Abdomen firm, non-tender, round. Bowel sounds hypoactive x 4 q. EXTREMITIES: No cyanosis, or edema. NEUROLOGICAL: Awake, alert, and oriented x 3. Non-focal. A/P Problem List: (1) Acute pancreatitis ICD Code: K85.90 - Acute pancreatitis without necrosis or infection, unspecified Assessment and Plan 61-year-old man with Atrial fibrillation with RVR, acute Patient currently with heart rate 130's. Reports of increased heart rate overnight with intermittent control. Was previously started on a Cardizem gtt which was weaned off and patient started on PO Cardizem. Home Metoprolol has been resumed. Will continue to monitor on telemetry. Placed on Cardizem gtt. Will consult cardiology for recurrent a fib RVR, appreciate further input and recommendations. Continue with Eliquis Constipation Abdominal distention KUB reviewed showing no dilated loops of bowel On bowel regimen Encouraged mobility and increase in PO fluids as tolerated. Continue IVF for now. Acute pancreatitis suspect secondary to chronic alcohol abuse, resolved. Abdomen/pelvis CT reviewed does indicate induration surrounding the second portion of duodenum and the pancreatic head. Does not appear to be infectious, no colitis seen on imaging, patient improving, will DC IV antibiotics. Afebrile. WBC trending down, 15.6-->14.4--> 12.9, likely related to acute pancreatitis. Lactic acid now WNL. Lipase trending down, 4600 --> 574-->551 Has been tolerating diet, continue to monitor. Pain improved. Continue IVF for now. Hypokalemia, resolved: K 3.5 Replete as needed. Follow BMP. Magnesium 1.8. Hyperglycemia, controlled. Could be secondary to acute pancreatitis. Hemoglobin A1c 6.6 Will DC accu checks, have been WNL. Chronic obstructive pulmonary disease, controlled. Patient on RA. O2 supplementation to maintain O2 sats greater 92%. Continue Duo nebs as needed. Xopenex added. Continue Solumedrol IV will decrease dose. CXR reviewed showing stable chest appearance. Encouraged use of incentive spirometry Continue home medications Alcohol abuse, acute vs chronic Continued need for Ativan. Continue CIWA and Librium protocol, will increase Librium dose. Patient has been educated regarding importance of cessation. DVT prevention: SCDs. Eliquis. Encourage ambulation. Mabel Mo Aug 15, 2017 11:39
[2017-08-15] MEDS ORDERED: DILTIAZEM HCL 25 MG/5 ML VIAL IV PUSH ONE (12:00)
[2017-08-15] MEDS: DILTIAZEM INJ 125 MG in SODIUM CHLORIDE 0.9% INJ 100 ML IV PRN (12:35)
[2017-08-15] MEDS ORDERED: methylPREDNISolone SOD SUCC 125 MG/2 ML VIAL IV PUSH SCH (13:00)
[2017-08-15] MEDS ORDERED: methylPREDNISolone SOD SUCC 40 MG/1 ML VIAL IV PUSH SCH (14:00)
--- NOTE | 2017-08-15 14:28 | MB ---
cc: FRANK VALLE DATE OF CONSULTATION: 08/15/2017 1955 REASON FOR CONSULTATION Atrial fibrillation with RVR. HISTORY OF PRESENT ILLNESS 61-year-old male with a past medical history significant for atrial fibrillation , on chronic oral anticoagulation, COPD, active smoker, obesity, that presented to the hospital with abdominal pain. The patient has been admitted for pancreatitis. However, he had a bout of atrial fibrillation with RVR. Thus, cardiology has been consulted for further management and evaluation. The patient is followed by Dr. Santana on an outpatient basis. Currently the patient remains fairly hemodynamically stable on a Cardizem drip with a heart rate in the lower 100s, asymptomatic, complaints of abdominal pain. REVIEW OF SYSTEMS Review of systems negative except for what is mentioned in HPI. PAST MEDICAL HISTORY 1. Atrial fibrillation. 2. Chronic obstructive pulmonary disease. 3. GERD. 4. Tobacco use. 5. Alcohol use. PAST SURGICAL HISTORY 1. Cholecystectomy. 2. Left eye surgery. MEDICATION Cardiac home medications: 1. Metoprolol 100 mg p.o. daily. 2. Eliquis 5 mg p.o. b.i.d. ALLERGIES NO KNOWN DRUG ALLERGIES. FAMILY HISTORY Noncontributory. SOCIAL HISTORY Is a chronic smoker. He drinks 8-14 beers daily. PHYSICAL EXAMINATION VITAL SIGNS: Temperature 97.1, respiratory rate 16, heart rate 105, blood pressure 156/75, O2 sat 97% on room air. GENERAL: Awake, alert, oriented x3, in no acute distress. NECK: No JVD or carotid bruits. HEART: Irregularly, irregular. No murmurs, rubs or gallops. LUNGS: Clear to auscultation bilaterally. No wheezing, no rhonchi, no rales. ABDOMEN: Positive bowel sounds, distended. EXTREMITIES: No cyanosis or edema. Pulses throughout. DATA CBC hemoglobin 12, hematocrit 36, platelet count 320, WBC 12.4 trending down from 15, INR 1.0, sodium 140, potassium 3.5, chloride 106, BUN 12, creatinine 0.68. Lipase 551, trending down from 4600, albumin 2.6, troponin less than 0.02. EKG Shows atrial fibrillation with RVR, right bundle branch block. IMAGING STUDIES Abdomen CT shows mild induration of the fat of the mesentery in the right upper quadrant surrounding the second portion of duodenum and head of pancreas, severe steatosis of the liver. ASSESSMENT/PLAN 61-year-old male consulted for atrial fibrillation with RVR in the setting of acute pancreatitis. The patient remains afebrile hemodynamically stable, with no cardiovascular complaints. He is complaining of abdominal pain. His heart rate is better controlled on a Cardizem drip at 5. Negative cardiac markers and EKG with no acute ST changes. At this point I will continue rate control with drip and when as tolerated by BP and HR. Afib with RVR driven by underlying pancreatis and abdominal pain. RECOMMENDATIONS 1. Continue rate control with Cardizem drip and wean off 2. Change long-acting Toprol to short-acting metoprolol 100 mg p.o. b.i.d., 3. Continue Eliquis for oral anticoagulation. 4. Avoid electrolytes abnormalities 5. Pancreatis treatment per primary/GI teams 6. Followed up with Dr. Santana upon discharge. Thank you for the opportunity to participate in the care of this patient Will be available on a PRN basis for any questions or concerns Frank Valle MD, MPH, [facility] [employer] MACHINE TOOL OPERATOR/TLL /1:40 PM /2:02 PM MTDD
[2017-08-15] MEDS ORDERED: IBUPROFEN 600 MG TAB PO ONE (14:30)
[2017-08-15] MEDS: METOPROLOL TARTRATE 100 MG TAB PO SCH ×2 (17:42→20:39)
[2017-08-15] MEDS: chlordiazePOXIDE 25 MG CAP PO SCH (20:39)
[2017-08-15] MEDS ORDERED: METOPROLOL TARTRATE 100 MG TAB PO SCH (21:00)
[2017-08-16] VITALS (8 sets, daily range): BP systolic 136–141; BP diastolic 82–89; PULSE 70–111; RESP 22–24; TEMP 97.2–98.5; O2SAT 96
[2017-08-16] MEDS: DILTIAZEM INJ 125 MG in SODIUM CHLORIDE 0.9% INJ 100 ML IV PRN (01:11)
[2017-08-16] MEDS: LORazepam 1 MG TAB PO PRN (01:18)
[2017-08-16] MEDS: methylPREDNISolone SOD SUCC 40 MG/1 ML VIAL IV PUSH SCH ×2 (01:19→12:56)
[2017-08-16 05:02] LABS: AUTOMATED NEUTROPHIL # 11.3 TH/MM3 (1.8-7.7); BASOPHIL # 0.3 TH/MM3 (0-0.2); BASOPHIL % 2.6 % (0.0-2.0); HEMATOCRIT 33.9 % (39.0-51.0); HEMO FLAGS DIFF FINAL; LYMPH % 5.9 % (9.0-44.0); LYMPHOCYTE # 0.8 TH/MM3 (1.0-4.8); MEAN CELL VOLUME 89.6 FL (80.0-100.0); MEAN CORPUSCULAR HEMOGLOBIN 29.5 PG (27.0-34.0); MONO % 4.2 % (0.0-8.0); NEUT % 87.3 % (16.0-70.0); PLATELET COUNT 365 TH/MM3 (150-450); RED BLOOD COUNT 3.78 MIL/MM3 (4.50-5.90); RED CELL DISTRIBUTION WIDTH 13.1 % (11.6-17.2); WHITE BLOOD COUNT 12.9 TH/MM3 (4.0-11.0)
[2017-08-16 05:24] LABS: BICARBONATE 23.6 MEQ/L (21.0-32.0)
[2017-08-16] MEDS: ACETAMINOPHEN/HYDROcodone 325 MG/5 MG TAB PO PRN ×2 (06:37→12:55)
[2017-08-16] MEDS: RESP: ALBUTEROL 2.5 MG/IPRATROPIUM 0.5 MG NEB (SCH) NEB ×2 (08:11→14:00)
[2017-08-16] MEDS: chlordiazePOXIDE 25 MG CAP PO SCH (09:00)
[2017-08-16] MEDS: NICOTINE 21 MG/24 HR PATCH T-DERMAL SCH (09:00)
[2017-08-16] MEDS: REMOVE OLD PATCH T-DERMAL SCH (09:00)
[2017-08-16] MEDS: BUDESONIDE-FORMOTEROL 160/4.5 MCG INHALER INH SCH (09:14)
[2017-08-16] MEDS: PANTOPRAZOLE SOD 40 MG DELAYED RELEASE TAB PO SCH (09:15)
[2017-08-16] MEDS: THIAMINE HCL 100 MG TAB PO SCH (09:15)
[2017-08-16] MEDS: APIXABAN 5 MG TABLET PO SCH (09:15)
[2017-08-16] MEDS: SODIUM CHLORIDE 0.9% FLUSH 10 ML FLUSH IV FLUSH SCH (09:16)
[2017-08-16] MEDS: METOPROLOL TARTRATE 100 MG TAB PO SCH ×2 (09:18→12:55)
[2017-08-16] MEDS: POTASSIUM CHLORIDE 10 MEQ CONTROLLED RELEASE TAB PO SCH (09:18)
[2017-08-16] MEDS ORDERED: METO-338 PO (12:44)
[2017-08-16] MEDS ORDERED: PRED10PA PO (12:44)
--- NOTE | 2017-08-16 12:45 | HHI.DCPOC ---
Discharge Care Plan Diagnosis: (1) Pancreatitis (2) COPD exacerbation Goals to Promote Your Health * To prevent worsening of your condition and complications * To maintain your health at the optimal level Directions to Meet Your Goals Take your medications as prescribed Follow your dietary instruction Follow activity as directed Keep your appointments as scheduled Take your immunizations and boosters as scheduled If your symptoms worsen call your PCP, if no PCP go to Urgent Care Center or Emergency Room Smoking is Dangerous to Your Health. Avoid second hand smoke Call the 24-hour hour crisis hotline for domestic abuse at Nilda Kimball MD Aug 16, 2017 12:45
--- NOTE | 2017-08-16 12:48 | HHI.DS ---
tiffani marie Discharge Summary Admission Date Aug 11, 2017 at 10:58 Discharge Date: Aug 16, 2017 Admitting Diagnosis pancreatitis with uncontrolled A. fib (1) Acute pancreatitis ICD Code: K85.90 - Acute pancreatitis without necrosis or infection, unspecified Procedures none Brief History - From Admission Written by Guanakito Juárez, acting as scribe for Dr. Mcneil on 08/11/17 at 10 :59. 61 year-old male with known history of atrial fibrillation, chronic obstructive pulmonary disease, chronic tobacco use, chronic alcohol abuse who presented to hospital because acute onset abdominal pain. Patient states that he has had a mid backache and pain for the last 5-6 months. Last night at midnight he developed severe pain that started in his back and radiated out around his right side. The pain continued to move across his abdomen and then he started developing a pain that he describes as a scott or knife stabbing him in both breasts. States that pain was intermittent with being 10/10 on a pain scale. He did take one half of a Sabael last evening without any relief. At 4 AM he states that he had an episode of nausea and vomiting without any hematemesis, coffee-ground emesis. Patient indicates that he has had associated fever/chills. [facility] home however there was no elevation in his temperature. The pain persisted throughout the morning, he did drink a beer at approximately 7:30 this morning in order for him to have a bowel movement. He has not ate anything since last evening which was turkey soup. At time evaluating the patient he does have severe abdominal pain which is not resolved with Dilaudid. Patient workup does indicate severe sepsis with acute pancreatitis. Patient will be admitted for further evaluation and management. CBC/BMP: 08/16/17 0441 08/16/17 0441 Significant Findings Laboratory Tests Test 08/14/17 09:03 08/15/17 04:20 08/16/17 04:41 White Blood Count 12.9 TH/MM3 (4.0-11.0) 12.4 TH/MM3 (4.0-11.0) 12.9 TH/MM3 (4.0-11.0) Red Blood Count 3.79 MIL/MM3 (4.50-5.90) 3.99 MIL/MM3 (4.50-5.90) 3.78 MIL/MM3 (4.50-5.90) Hemoglobin 11.4 GM/DL (13.0-17.0) 12.0 GM/DL (13.0-17.0) 11.2 GM/DL (13.0-17.0) Hematocrit 34.8 % (39.0-51.0) 36.0 % (39.0-51.0) 33.9 % (39.0-51.0) Mean Platelet Volume 6.6 FL (7.0-11.0) 6.9 FL (7.0-11.0) Neutrophils (%) (Auto) 82.8 % (16.0-70.0) 94.1 % (16.0-70.0) 87.3 % (16.0-70.0) Neutrophils # (Auto) 10.6 TH/MM3 (1.8-7.7) 11.7 TH/MM3 (1.8-7.7) 11.3 TH/MM3 (1.8-7.7) Blood Urea Nitrogen 6 MG/DL (7-18) 20 MG/DL (7-18) Random Glucose 140 MG/DL (74-106) 205 MG/DL (74-106) 264 MG/DL (74-106) Calcium Level 8.3 MG/DL (8.5-10.1) Potassium Level 3.3 MEQ/L (3.5-5.1) Lipase 551 U/L (73-393) Lymphocytes (%) (Auto) 3.9 % (9.0-44.0) 5.9 % (9.0-44.0) Lymphocytes # (Auto) 0.5 TH/MM3 (1.0-4.8) 0.8 TH/MM3 (1.0-4.8) Basophils (%) (Auto) 2.6 % (0.0-2.0) Basophils # (Auto) 0.3 TH/MM3 (0-0.2) Imaging Last Impressions Chest X-Ray 08/14/17 0000 Signed Impressions: Service Date/Time: Monday, August 14, 2017 08:36 - CONCLUSION: Stable chest appearance. Jonathan Shepard MD Abdomen X-Ray 08/14/17 0000 Signed Impressions: Service Date/Time: Monday, August 14, 2017 08:36 - CONCLUSION: No dilated loops of bowel observed. Last Kohli Jr., MD Abdomen/Pelvis CT 08/11/17 0857 Signed Impressions: Service Date/Time: Friday, August 11, 2017 09:50 - CONCLUSION: 1. There is some mild induration of the fat of the mesentery in the right upper quadrant surrounding the 2nd portion of the duodenum and head of the pancreas. No dilation of the distal common bile duct. This is of uncertain significance. Recommend correlation with clinical labs for possible pancreatitis. 2. Severe steatosis of the liver, stable in appearance from 2016. Last Kaur MD Gall Bladder Ultrasound 08/11/17 0000 Signed Impressions: Service Date/Time: Friday, August 11, 2017 11:30 - CONCLUSION: 1. Hepatomegaly with coarse increased echotexture and increased acoustic attenuation. No focal solid lesions. Small left lobe cyst. 2. Cholecystectomy. The common bile duct is not identified and cannot be measured. Last Kaur MD PE at Discharge GENERAL: Well-nourished, well-developed patient male patient lying in bed in nad. SKIN: Warm and dry. No rash. HEENT: Normocephalic. PERRL. intact EOMs. No scleral icterus. No injection or drainage. NECK: Supple, trachea midline. No JVD or lymphadenopathy. CARDIOVASCULAR: Regular rate and rhythm without murmurs, gallops, or rubs. RESPIRATORY: Breath sounds equal bilaterally. No accessory muscle use. GASTROINTESTINAL: Abdomen firm, non-tender, round. Bowel sounds hypoactive x 4 q. EXTREMITIES: No cyanosis, or edema. NEUROLOGICAL: Awake, alert, and oriented x 3. Non-focal. Pt update on day of discharge Patient seen in follow-up for pancreatitis, COPD exacerbation and uncontrolled. Heart rate better controlled on new beta isaiah regimen. Patient called and with minimal abdominal pain. He notes no nausea or vomiting. Discharge plan discussed with patient who is agreeable Hospital Course This patient is a 69-year-old gentleman came with abdominal pain and complaints of pancreatitis in the known use of alcohol. Patient's pain improved however he then had an atrial fibrillation with a rapid ventricular rate. He has known atrial fibrillation and station beta isaiah and Eliquis. He required Cardizem drip and ICU as well as adjustments to his beta isaiah. His pain required IV narcotics for control. Patient had some element of alcohol withdrawal which was managed with an occult withdrawal protocol. He also had a COPD exacerbation which was treated with steroids and nebulizers. Patient finally recovered and returned to his baseline with the exception of minimal abdominal pain. 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 for his atrial fibrillation Pt Condition on Discharge: Good Discharge Disposition: Discharge Home Discharge Time: > 30 minutes Discharge Instructions DIET: Follow Instructions for: As Tolerated, No Restrictions Activities you can perform: Regular-No Restrictions Follow up Referrals: Cardiology - 1 Week with mookie New Medications: Prednisone (21) 10 mg tab Dose Pack (Prednisone (21) 10 mg tab Dose Pack) 10 Mg Pack 10 MG PO DIRECTED for Inflammation, #1 DSPK 0 Refills Metoprolol Tartrate (Lopressor) 100 Mg Tab 100 MG PO QID for afib, #120 TAB Continued Medications: Albuterol 8.5 GM Inh (Proair Hfa 8.5 GM Inh) 90 Mcg/Act Aer 2 PUFF INH QID PRN for WHEEZING, #1 INHALER 0 Refills 108 mcg/actuation Albuterol Neb (Albuterol Neb) 2.5 Mg/3 Ml Neb 2.5 MG NEB Q4HR NEB PRN for SHORTNESS OF BREATH, #60 NEBULE Apixaban (Eliquis) 5 Mg Tab 5 MG PO BID for Blood Clot Prevention, #60 TAB 0 Refills Fluticasone-Salmeterol Inh (Advair Diskus Inh) 250-50 Mcg/Blist Aer 1 PUFF INH DAILY, #1 INHALER 0 Refills Rinse mouth after use. Hydrocodone-Acetaminophen (Hydrocodone-Acetaminophen) 5-325 mg Tab 1 TAB PO Q6H PRN for PAIN, #20 TAB 0 Refills (This prescription has been renewed ) Omeprazole (Omeprazole) 20 Mg Tab 20 MG PO DAILY, #30 TAB 0 Refills Discontinued Medications: Metoprolol Succinate ER 24 HR (Metoprolol Succinate ER 24 HR) 100 Mg Tab 100 MG PO DAILY, #30 TAB 0 Refills Nilda Kimball MD Aug 16, 2017 12:48
--- NOTE | 2017-08-16 17:00 | EKG ---
Date Performed: 08/15/2017 Time Performed: 09:27:54 PTAGE: 61 years EKG: ATRIAL FIBRILLATION WITH RAPID VENTRICULAR RESPONSE WITH ABERRANT CONDUCTION OR VENTRICULAR PREMATURE COMPLEXES LOW QRS VOLTAGE INCOMPLETE RIGHT BUNDLE BRANCH BLOCK MINIMAL ST DEPRESSION Since previous tracing, no significant change noted ABNORMAL ECG PREVIOUS TRACING : 08/11/2017 08.39 DOCTOR: Alexia Guzman Interpretating Date/Time 08/16/2017 16:58:47
== END 2017-08-16 16:38 | disposition home or self-care (01) | DRG 439 ==
LOC: PHED 08:33 → PHEDA 10:58 → PH3B 12:23 → PHICU 08-12 10:37 → PH3A 08-13 22:29 → PHICU 08-14 05:20
PROVIDERS: ADMIT Hospitalist; ATTEND Hospitalist
DX: K85.20 Alcohol induced acute pancreatitis without necrosis or infection (principal); J44.1 Chronic obstructive pulmonary disease with (acute) exacerbation; F10.239 Alcohol dependence with withdrawal, unspecified; I48.91 Unspecified atrial fibrillation; R73.9 Hyperglycemia, unspecified; K21.9 Gastro-esophageal reflux disease without esophagitis; I45.10 Unspecified right bundle-branch block; K59.00 Constipation, unspecified; E87.6 Hypokalemia; F17.210 Nicotine dependence, cigarettes, uncomplicated; Y90.0 Blood alcohol level of less than 20 mg/100 ml; Z79.01 Long term (current) use of anticoagulants
CPT/HCPCS: 71010; 74000; 74177; 76705; 80048; 80053; 80307; 81001; 82550; 82948; 83036; 83605; 83690; 83735; 84484; 85007; 85025; 85027; 85610; 85730; 86403; 87040; 87077; 87186; 87205; 90471; 90686; 93005; 94150; 94640; 94664; 96361; 96374; 96375; G0008; J0744; J1170; J1885; J2060; J2405; J2920; J2930; J7030; J7614; Q2038; Q9967

== ENCOUNTER → 2017-10-11 | Outpatient (CLI) | payer MEDICAID ==
[~2017-10-11] VITALS: Ht 177.8 cm; Wt 100.1 kg
[~2017-10-11] MED LIST changes: -AZIT250T3 PO; +CHLORHEXIDINE GLUCONATE 2 % 1 PACK (2 CLOTHS) TOPICAL PRN; -DEXT1TAB18 PO; +DEXTROSE 5% IN WATE 1000ML INJ 1,000 ML IV SCH; -GUAI100S7 PO; -HYDR-3533 PO; +LACTATED RINGER'S 1000 ML IV PRN; +LIDOCAINE HCL 1% PF 5 ML SYRINGE OTHER ONE; +METO100T PO; -METO1TAB43 PO; +METOPROLOL TARTRATE 25 MG TAB PO PRN; +METOPROLOL TARTRATE 5 MG/5 ML VIAL ONE; +PHENYLEPH/NS 1000 MCG/10 ML SYR IV ONE; +POVIDONE IODINE 5% (ANTISEPSIS KIT) 4 APPLICATIONS EACH NARE PRN; -PRED-503 PO; +PROPOFOL 200 MG/20 ML AMP IV ONE; +SODIUM CHLORID 0.9% 500 ML IV PRN
[2017-10-11 15:58] VITALS: BP 112/79; PULSE 91; RESP 18; TEMP 98.2; O2SAT 100
--- NOTE | 2017-10-12 13:30 | EKG ---
Date Performed: 10/11/2017 Time Performed: 13:16:41 PTAGE: 62 years EKG: ATRIAL FIBRILLATION WITH RAPID VENTRICULAR RESPONSE INCOMPLETE RIGHT BUNDLE BRANCH BLOCK Si nce the prior tracing, there has been no significant change ABNORMAL RHYTHM ECG PREVIOUS TRACING : 08/15/2017 09.27 DOCTOR: Kalpesh Cabrera Interpretating Date/Time 10/12/2017 13:29:22
--- NOTE | 2017-10-15 07:46 | MR ---
cc: Arlene KENNYKYLE DATE 10/11/2017 PROCEDURE PERFORMED Total colonoscopy PREOPERATIVE DIAGNOSIS 1. Abdominal pain 2. Diverticulosis 3. Lipoma of sigmoid colon 4. History of polyps. POSTOPERATIVE DIAGNOSIS 1. Sigmoid diverticulosis, extensive, non-obstructing. 2. Lipoma at 35 cm in the sigmoid colon nonobstructing. ANESTHESIA Monitored anesthesia care. SURGEON Dr. Kenny OPERATIVE FINDINGS This patient was referred to me with previous adenomatous polyps. He also has had bouts of diverticulitis in the past. He has had his last colonoscopy done in January 2017. At that time, he was found to have a good sized lipoma of one wall of the sigmoid colon at about 35 cm that was irritated. It was biopsied and showed only irritation, no adenomatous changes. The patient intermittently complains of severe abdominal pain, cramping and attributes this to his lipoma and his diverticular disease. At colonoscopy, all that was found was extensive sigmoid diverticulosis and this non-obstructing lipoma. The remainder of the colon looked normal. OPERATIVE TECHNIQUE The patient was placed on the table in the left lateral position, given monitored anesthesia care and the colonoscope was introduced through the anal canal, taken to the rectum, sigmoid colon, descending colon, transverse colon, ascending colon to the cecum. The ileocecal valve was seen, as was the base of the appendix. The scope was sequentially withdrawn to sequentially look at the mucosa and getting a good look at the mucosa. The prep was good. There was a little bit of fluid around, but I was able to aspirate and get a good look at the mucosa. The scope was eventually withdrawn with the above-mentioned findings. The patient tolerated the procedure well and left the GI lab in good condition. He should have a repeat colonoscopy in five years time and we will probably give him a prescription for an antispasmodic to treat his abdominal pain attributing it to irritable bowel syndrome. The patient tolerated the procedure well and left the GI lab in good condition. MD ASHLEY Apple/KATHARINE /3:16 PM /7:34 AM
== END ==
LOC: HSDC 12:28
PROVIDERS: ATTEND Colon & Rectal Surgery
DX: K57.30 Diverticulosis of large intestine without perforation or abscess without bleeding (principal); D17.79 Benign lipomatous neoplasm of other sites; Z86.010 Personal history of colon polyps; K59.00 Constipation, unspecified; R10.9 Unspecified abdominal pain; I48.91 Unspecified atrial fibrillation; J44.9 Chronic obstructive pulmonary disease, unspecified; Z79.01 Long term (current) use of anticoagulants
CPT/HCPCS: 00811; 45378; 93005; J2370; J7120

== ENCOUNTER 2018-04-14 07:00 | Inpatient (IN) ==
[2018-04-14] MEDS ORDERED: Sodium Chlor 0.9% Inj 500 ML IV.SIG ONE (07:33)
--- NOTE | 2018-04-14 07:43 | ED ---
HPI General Chief Complaint: Syncope Stated Complaint: pashed out Time Seen by Provider: 04/14/18 07:32 History of Present Illness HPI narrative: 62-year-old male with a history of atrial fibrillation, sick sinus syndrome, hypertension, COPD presenting to the emergency department for evaluation of syncope. The patient states that he has been having increasing frequency of episodic shortness of breath, diaphoresis, and lightheadedness. He states that it is worse when he gets up from a chair or bed and notes improvement if he sits down and uses some of his inhalers. This morning his found him on the floor after he had passed out. The patient remembers getting up to use the restroom and then remembers feeling very lightheaded, diaphoretic, and short of breath before passing out. He reports that he was out for short time and when he awoke he returned to his baseline. He denies a headache or change in vision. He was recently evaluated with a Holter monitor by his valve assembler which showed episodic ventricular tachycardia. Related Data Home Medications Medication Instructions Recorded Confirmed apixaban [Eliquis] 5 mg PO BID 04/14/18 04/14/18 metoprolol succinate 100 mg PO DAILY 04/14/18 04/14/18 omeprazole 20 mg PO DAILY 04/14/18 04/14/18 Previous Rx's Medication Instructions Recorded atorvastatin 80 mg PO DAILY 30 Days #30 tab 04/15/18 Allergies Allergy/AdvReac Type Severity Reaction Status Date / Time No Known Allergies Allergy Verified 04/14/18 07:25 Review of Systems Constitutional Denies body ache(s), Denies chills, Reports difficulty sleeping, Denies fever(s) , Reports increased appetite, Reports night sweats and Denies weight gain Eyes Denies blurry vision ENT Reports dizziness Cardiovascular Reports palpitations Respiratory Denies cough PMFSH Medical History Medical History COPD (chronic obstructive pulmonary disease) (Acute) Cardiomegaly (Acute) Congestive heart failure (Acute) Dilated cardiomyopathy (Acute) Hypertension (Acute) Paroxysmal A-fib (Acute) Surgical History Surgical History Hx of cholecystectomy (Acute) Social History Social History Substance History: No History of Abuse Second Hand Smoke Exposure: Yes Smoking Status: Current every day smoker Tobacco Type: Cigarettes How Often Do You Have a Drink Containing Alcohol: Monthly or less Recent Travel in [facility] within the Last 8 Weeks: No Recent Out of Country Travel within the Last 8 Weeks: No Immunization History Tetanus Immunization: <5 Years Exam [facility] Head: normocephalic and atraumatic Nose: no nasal discharge and no epistaxis Mouth: moist mucous membranes Eyes Sclera: normal sclerae Pupils: PERRL Neck Neck: trachea midline and no JVD Resp Effort & Inspection: no use of accessory muscles Auscultation: clear to auscultation bilaterally Cardio Rate: regular rate Rhythm: regular rhythm Heart Sounds: no murmurs GI Inspection: non-distended Palpation: soft, no hepatosplenomegaly and nontender Skin General: dry skin (warm) Neuro General: alert and awake Cranial Nerves: other Speech: speech normal Motor: no movement abnormalities noted Extrem General: normal to inspection, no clubbing, no cyanosis and no edema Psych Mood: congruent mood Affect: normal affect Judgment: judgment good Course Initial Documented Vital Signs Temperature 97.4 F L 04/14/18 07:05 Pulse Rate 79 04/14/18 07:05 Respiratory Rate 20 04/14/18 07:05 Blood Pressure 124/75 04/14/18 07:05 Pulse Oximetry 98 04/14/18 07:05 Last Documented Vital Signs Temperature 97.3 F L 04/15/18 08:00 Pulse Rate 75 04/15/18 12:00 Respiratory Rate 20 04/15/18 08:00 Blood Pressure 150/82 H 04/15/18 08:00 Pulse Oximetry 98 04/15/18 08:00 Medical Decision Making Lab Data Lab results narrative: The patient is a 62-year-old male with a history of paroxysmal atrial fibrillation, COPD, hypertension who presents emergency department for evaluation of syncope. The patient has syncopized about 3 times in the past couple weeks which is why he presented to the emergency department. He had an outpatient monitor that showed episodic ventricular tachycardia which could be the etiology of his syncope. He is persistently in atrial fibrillation but without any rapid ventricular response and is anticoagulated. Patient is unlikely to be having any neurologic etiology of his syncope based on the normal neurologic exam, no headache, and no weakness anywhere. He is unlikely to have an electrolyte abnormality as a cause of his syncope based on his normal labs and adequate food and drink intake. He denies any chest pain/ pressure or shortness of breath associated with this making ischemia unlikely cause of his syncope. The patient will be admitted for evaluation of his cardiogenic syncope and continuous cardiac monitoring. Result diagrams: 04/15/18 08:09 04/15/18 08:09 Lab Results 04/14/18 04/14/18 04/14/18 Range/Units 07:40 07:40 12:25 WBC 10.0 (4.0-11.0) th/mm3 RBC 5.02 (4.50-5.90) mil/mm3 Hgb 14.5 (13.0-17.0) gm/dL Hct 43.5 (39.0-51.0) % MCV 86.7 (80.0-100.0) fL MCH 29.0 (27.0-34.0) pg MCHC 33.4 (32.0-36.0) % RDW 16.0 (11.6-17.2) % Plt Count 267 (150-450) th/mm3 MPV 7.5 (7.0-11.0) fL Neut % (Auto) 60.3 (16.0-70.0) % Lymph % (Auto) 24.1 (9.0-44.0) % Charles % (Auto) 7.2 (0.0-8.0) % Eos % (Auto) 7.6 H (0.0-4.0) % Baso % (Auto) 0.8 (0.0-2.0) % Neut # (Auto) 6.1 (1.8-7.7) th/mm3 Lymph # (Auto) 2.4 (1.0-4.8) th/mm3 Charles # (Auto) 0.7 (0.0-0.9) th/mm3 Eos # (Auto) 0.8 H (0.0-0.4) th/mm3 Baso # (Auto) 0.1 (0.0-0.2) th/mm3 WBC Differential . Differential Comment Auto diff final PT (9.8-11.6) sec INR Ratio Sodium 140 (136-145) meq/L Potassium 4.2 (3.5-5.1) meq/L Chloride 108 H (98-107) meq/L Carbon Dioxide 26.2 (21.0-32.0) meq/L Anion Gap 6 (5-15) meq/L BUN 16 (7-18) mg/dL Creatinine 1.07 (0.60-1.30) mg/dL Estimated GFR 70 L (>89) mL/min Random Glucose 125 H (74-106) mg/dL Calcium 8.9 (8.5-10.1) mg/dL Magnesium 2.0 (1.5-2.5) mg/dL Total Bilirubin (0.2-1.0) mg/dL AST (15-37) U/L ALT (12-78) U/L Alkaline Phosphatase (45-117) U/L Total Creatine Kinase 65 (39-308) U/L Troponin I Less than 0.02 L (0.02-0.05) ng/mL Total Protein (6.4-8.2) g/dL Albumin (3.4-5.0) g/dL Urine Color Straw (Yellw/Straw) Urine Clarity Clear (Clear) Urine pH 6.0 (5.0-8.5) Ur Specific [place] 1.006 (1.002-1.035) Urine Protein Negative (Neg-Trace) mg/dL Urine Glucose (UA) Negative (Negative) mg/dL Urine Ketones Negative (Negative) mg/dL Urine Occult Blood Negative (Negative) Urine Nitrate Negative (Negative) Urine Bilirubin Negative (Negative) Urine Urobilinogen Less than 2 (Less than 2) mg/dL Ur Leukocyte Esterase Negative (Negative) Urine WBC Less than 1 (0-5) /hpf Ur Squamous Epith Cells <1 (0-5) /hpf Micro UA Comment Culture not ind Urine Culture Comments Culture not ind 04/14/18 04/14/18 04/15/18 Range/Units 15:03 21:32 08:09 WBC 8.4 (4.0-11.0) th/mm3 RBC 4.79 (4.50-5.90) mil/mm3 Hgb 14.0 (13.0-17.0) gm/dL Hct 41.6 (39.0-51.0) % MCV 87.0 (80.0-100.0) fL MCH 29.2 (27.0-34.0) pg MCHC 33.5 (32.0-36.0) % RDW 15.4 (11.6-17.2) % Plt Count 228 (150-450) th/mm3 MPV 7.5 (7.0-11.0) fL Neut % (Auto) 65.2 (16.0-70.0) % Lymph % (Auto) 21.7 (9.0-44.0) % Charles % (Auto) 5.3 (0.0-8.0) % Eos % (Auto) 7.1 H (0.0-4.0) % Baso % (Auto) 0.7 (0.0-2.0) % Neut # (Auto) 5.5 (1.8-7.7) th/mm3 Lymph # (Auto) 1.8 (1.0-4.8) th/mm3 Charles # (Auto) 0.4 (0.0-0.9) th/mm3 Eos # (Auto) 0.6 H (0.0-0.4) th/mm3 Baso # (Auto) 0.1 (0.0-0.2) th/mm3 WBC Differential . Differential Comment Auto diff final PT (9.8-11.6) sec INR Ratio Sodium (136-145) meq/L Potassium (3.5-5.1) meq/L Chloride (98-107) meq/L Carbon Dioxide (21.0-32.0) meq/L Anion Gap (5-15) meq/L BUN (7-18) mg/dL Creatinine (0.60-1.30) mg/dL Estimated GFR (>89) mL/min Random Glucose (74-106) mg/dL Calcium (8.5-10.1) mg/dL Magnesium (1.5-2.5) mg/dL Total Bilirubin (0.2-1.0) mg/dL AST (15-37) U/L ALT (12-78) U/L Alkaline Phosphatase (45-117) U/L Total Creatine Kinase (39-308) U/L Troponin I Less than 0.02 L Less than 0.02 L (0.02-0.05) ng/mL Total Protein (6.4-8.2) g/dL Albumin (3.4-5.0) g/dL Urine Color (Yellw/Straw) Urine Clarity (Clear) Urine pH (5.0-8.5) Ur Specific [place] (1.002-1.035) Urine Protein (Neg-Trace) mg/dL Urine Glucose (UA) (Negative) mg/dL Urine Ketones (Negative) mg/dL Urine Occult Blood (Negative) Urine Nitrate (Negative) Urine Bilirubin (Negative) Urine Urobilinogen (Less than 2) mg/dL Ur Leukocyte Esterase (Negative) Urine WBC (0-5) /hpf Ur Squamous Epith Cells (0-5) /hpf Micro UA Comment Urine Culture Comments 04/15/18 04/15/18 Range/Units 08:09 08:09 WBC (4.0-11.0) th/mm3 RBC (4.50-5.90) mil/mm3 Hgb (13.0-17.0) gm/dL Hct (39.0-51.0) % MCV (80.0-100.0) fL MCH (27.0-34.0) pg MCHC (32.0-36.0) % RDW (11.6-17.2) % Plt Count (150-450) th/mm3 MPV (7.0-11.0) fL Neut % (Auto) (16.0-70.0) % Lymph % (Auto) (9.0-44.0) % Charles % (Auto) (0.0-8.0) % Eos % (Auto) (0.0-4.0) % Baso % (Auto) (0.0-2.0) % Neut # (Auto) (1.8-7.7) th/mm3 Lymph # (Auto) (1.0-4.8) th/mm3 Charles # (Auto) (0.0-0.9) th/mm3 Eos # (Auto) (0.0-0.4) th/mm3 Baso # (Auto) (0.0-0.2) th/mm3 WBC Differential Differential Comment PT 10.9 (9.8-11.6) sec INR 1.1 Ratio Sodium 141 (136-145) meq/L Potassium 3.9 (3.5-5.1) meq/L Chloride 110 H (98-107) meq/L Carbon Dioxide 22.2 (21.0-32.0) meq/L Anion Gap 9 (5-15) meq/L BUN 11 (7-18) mg/dL Creatinine 0.83 (0.60-1.30) mg/dL Estimated GFR Greater than 89 (>89) mL/min Random Glucose 83 (74-106) mg/dL Calcium 8.7 (8.5-10.1) mg/dL Magnesium (1.5-2.5) mg/dL Total Bilirubin 1.0 (0.2-1.0) mg/dL AST 9 L (15-37) U/L ALT 15 (12-78) U/L Alkaline Phosphatase 58 (45-117) U/L Total Creatine Kinase (39-308) U/L Troponin I (0.02-0.05) ng/mL Total Protein 6.5 (6.4-8.2) g/dL Albumin 3.4 (3.4-5.0) g/dL Urine Color (Yellw/Straw) Urine Clarity (Clear) Urine pH (5.0-8.5) Ur Specific [place] (1.002-1.035) Urine Protein (Neg-Trace) mg/dL Urine Glucose (UA) (Negative) mg/dL Urine Ketones (Negative) mg/dL Urine Occult Blood (Negative) Urine Nitrate (Negative) Urine Bilirubin (Negative) Urine Urobilinogen (Less than 2) mg/dL Ur Leukocyte Esterase (Negative) Urine WBC (0-5) /hpf Ur Squamous Epith Cells (0-5) /hpf Micro UA Comment Urine Culture Comments Imaging Data Radiologist's impression: Carotid Doppler Study 04/14/18 00:00 CONCLUSION: 1. Right Internal Carotid Artery: No significant stenosis or atherosclerotic plaque is visualized. 2. Left Internal Carotid Artery: No significant stenosis or atherosclerotic plaque is visualized. Head CT 04/14/18 00:00 CONCLUSION: No evidence of acute intracranial pathology. No masses are identified. Old left frontal infarct . Head MRI 04/14/18 00:00 CONCLUSION: 1. Remote infarct anterior left frontal lobe. No acute findings. No recent infarct. Head MRA 04/14/18 00:00 CONCLUSION: 1. MRA head within normal limits for age. Slight motion artifact. Chest X-Ray 04/14/18 07:33 CONCLUSION: 1. COPD. 2. No evidence of acute airspace disease Discharge Plan Discharge Disposition Patient Disposition: 01 Discharge Home Discharge Condition Condition: Stable Discharge Order Discharge Orders: Discharge Order (Routine); Ordered 04/15/18 Ordered By: Margareth Calle Discharge Details Diagnosis: Syncope, COPD (chronic obstructive pulmonary disease), Hypertension, Atrial fibrillation Physicians Team ED Provider: Abel Godoy Primary Care Provider: Gokul Crawford Attending Provider: Ryder Castellano Other Providers: Jj Hollis Discharge Interventions Interventions: ED Discharge Assessment Last Done: 04/14/18 13:55 Status ED Status: Left Department Discharge Information Discharge Date/Time: 04/14/18 14:00
[2018-04-14 08:01] LABS: Baso # (Auto) 0.1 th/mm3 (0.0-0.2); Baso % (Auto) 0.8 % (0.0-2.0); Eos # (Auto) 0.8 th/mm3 (0.0-0.4); Eos % (Auto) 7.6 % (0.0-4.0); Hematocrit 43.5 % (39.0-51.0); Hemoglobin 14.5 gm/dL (13.0-17.0); Lymph # (Auto) 2.4 th/mm3 (1.0-4.8); Lymph % (Auto) 24.1 % (9.0-44.0); Mean Corpuscular HGB Conc 33.4 % (32.0-36.0); Mean Corpuscular Volume 86.7 fL (80.0-100.0); Mean Platelet Volume 7.5 fL (7.0-11.0); Mono # (Auto) 0.7 th/mm3 (0.0-0.9); Mono % (Auto) 7.2 % (0.0-8.0); Neut # (Auto) 6.1 th/mm3 (1.8-7.7); Neut % (Auto) 60.3 % (16.0-70.0); Platelet Count 267 th/mm3 (150-450); Red Blood Count 5.02 mil/mm3 (4.50-5.90)
[2018-04-14 08:34] LABS: Anion Gap 6 meq/L (5-15); Blood Urea Nitrogen 16 mg/dL (7-18); Calcium 8.9 mg/dL (8.5-10.1); Carbon Dioxide 26.2 meq/L (21.0-32.0); Chloride 108 meq/L (98-107); Glomerular Filtration Rate 70 mL/min (>89); Glucose,Random 125 mg/dL (74-106); Potassium 4.2 meq/L (3.5-5.1); Sodium 140 meq/L (136-145)
[2018-04-14 08:38] LABS: Creatine Kinase 65 U/L (39-308)
--- NOTE | 2018-04-14 09:09 | XR ---
EXAM DATE: 04/14/2018 7:54 AM EDT AGE/SEX: 62 years / Male INDICATIONS: Syncope CLINICAL DATA: This is the patient's initial encounter. Patient reports that signs and symptoms have been present for 1 day and indicates a pain score of 2/10. MEDICAL/SURGICAL HISTORY: Chronic obstructive pulmonary disease. None. COMPARISON: PO, CHEST SINGLE AP, 08/14/2017. . FINDINGS: A single AP view of the chest demonstrates the lungs to be symmetrically hyperaerated without evidenc e of mass, infiltrate or effusion. The cardiomediastinal contours are unremarkable. Osseous structu res are intact. CONCLUSION: 1. COPD. 2. No evidence of acute airspace disease Electronically signed by: Richard Gordillo MD 04/14/2018 9:08 AM EDT
--- NOTE | 2018-04-14 09:30 | P.PNFP ---
Subjective Interval history: 62 year old male with PMH COPD, Afib (on Eliquis 5 years ago , metoprolol diagnosed 6/7 years ago), benign growth in lower sigmoid colon, diverticulosis ( 39), HTN, pancreatitis presents to the emergency department with multiple syncopal episodes. He states that he has had near syncope several dozen times for over a year, the symptoms have becomes more severe turning into syncope. First syncopal episode was last year before his hospital visit for pancreatitis when he sat up to go to the bathroom. He had associated chest pain and left arm pain. He Lost consciousness for a couple of minutes per girlfriend for and had an associated broken rib due to the fall. In the past two months he had two syncopal episodes. The first one he was doing some heavy lifting, helping a friend tear down his shed and he flet himself getting dizzy. Leaned up on a 2x4 and his friend said he was laying in the ground for approximately 1 minute. Denies any post ictal symptoms except for a rapid heart rate and tightness in the chest. After that episode he went to his pattern designer and he got a 2 week monitor and during that time his mos recent episode was 4 am this morning, was getting up to go to the bathroom and apparently fainted. Unsure of long long he lost conscious. Had chest pain, elevated heart rate. Denies any urinary incontinence, tounge biting, muscle aches. He is aware of when he might go into syncope, seems to occur with rapid movements and change in position and long with over exertion. He explains that sitting to standing, standing to bending up. He had a two week heart monitor on and it showed prolonged super ventricular tachycardia when he had the syncopal episodes. Believes that marijuana helps with heart rate. Last smoked marijuana yesterday. Dr. Santana pattern designer, was last seen last Saturday and discussed the possibility of getting the defibrillator placed. PMH: PSH: Cholecsytectomy ( 25 years ago) A: NKDA Meds: advair at night, metoprolol, eliquis, SH: Lives in a mobile home with his girlfriend. Smokes 1ppd for 45 years. Denies alcohol consumption (use to drink in the past last alcohol consumption in 9 months). Occasional marijuana use. Uses two cups of caffeine a day. Last colonoscopy (2016). Results - Labs Result diagrams: 04/14/18 07:40 04/14/18 07:40 Abnormal lab results 04/14/18 04/14/18 Range/Units 07:40 07:40 Eos % (Auto) 7.6 H (0.0-4.0) % Eos # (Auto) 0.8 H (0.0-0.4) th/mm3 Chloride 108 H (98-107) meq/L Estimated GFR 70 L (>89) mL/min Random Glucose 125 H (74-106) mg/dL Troponin I Less than 0.02 L (0.02-0.05) ng/mL Short CBC 04/14/18 Range/Units 07:40 WBC 10.0 (4.0-11.0) th/mm3 Hgb 14.5 (13.0-17.0) gm/dL Hct 43.5 (39.0-51.0) % Plt Count 267 (150-450) th/mm3 BMP 04/14/18 07:40 Sodium 140 Potassium 4.2 Chloride 108 H Carbon Dioxide 26.2 BUN 16 Creatinine 1.07 Calcium 8.9 Cardiac Enzymes 04/14/18 Range/Units 07:40 Total Creatine Kinase 65 (39-308) U/L Troponin I Less than 0.02 L (0.02-0.05) ng/mL - Imaging Impressions Chest X-Ray 04/14/18 07:33 CONCLUSION: 1. COPD. 2. No evidence of acute airspace disease Physical Exam Vital signs: Vital Signs 04/14/18 07:05 04/14/18 07:33 Temperature 97.4 F L Pulse Rate 79 70 Respiratory Rate 20 18 Blood Pressure 124/75 130/99 H Pulse Oximetry 98 99 Intake & Output 04/13/18 04/14/18 04/14/18 18:59 06:59 18:59 Intake Total 500 / 500 Balance 500 / 500 Weight 90.718 kg Intake: IV 500 / 500 NS Inj 500 ML @ Wide Open IV. 500 / 500 SIG BOLUS ONE Rx#:[id number]
--- NOTE | 2018-04-14 09:36 | P.HPFP ---
History of Present Illness Primary Care Physician: Gokul Crawford History of Present Illness: 62 year old male with PMH COPD, Afib (on Eliquis, metoprolol), benign growth in lower sigmoid colon, diverticulosis, HTN, pancreatitis presents to the emergency department with multiple syncopal episodes. He states that he has had near syncope episodes several dozen times for over a year but now the symptoms have become more severe turning into syncope. First syncopal episode was last year before his hospital visit for pancreatitis (July) when he sat up to go to the bathroom. He had associated chest pain and left arm pain. He lost consciousness for a couple of minutes per his girlfriend and had an associated broken rib due to the fall. In the past two months he had two syncopal episodes. The first one he was doing some heavy lifting, helping a friend tear down his shed and he felt himself getting dizzy. He leaned up on a 2x4 plank and his friend said "he was laying in the ground for approximately 1 minute". Denies any post ictal symptoms except for a rapid heart rate and tightness in the chest. After that episode he went to his pig breeder and he got a loop recorder around 2 weeks ago. His most recent episode was 4 am this morning. He was getting up to go to the bathroom and apparently fainted. Unsure of how long he lost consciousness. He had chest pain and an elevated heart rate. Denies any urinary incontinence, nolan biting, muscle aches during this most recent episode. For his syncopal history he states he is aware of when he might go into syncope. It seems to occur with rapid movements, change in position or exertion. He explains that sitting to standing, standing to bending over causes dizziness. He saw Dr. Santana his pig breeder last Saturday,where he was told his loop recorder showed prolonged super ventricular tachycardia when he had the syncopal episodes. They discussed the possibility of getting a defibrillator placed. He believes that marijuana helps with heart rate. Last smoked marijuana yesterday. He has no other complaints today. PMH: COPD, Afib (on Eliquis, metoprolol), benign growth in lower sigmoid colon, diverticulosis ( dx at 40 years ), HTN, pancreatitis PSH: Cholecsytectomy ( 25 years ago) A: NKDA Meds: advair at night, metoprolol (started 6/7 years ago), eliquis ( started 5 years ago ) SH: Lives in a mobile home with his girlfriend. Smokes 1ppd for 45 years. Denies alcohol consumption (use to drink in the past last alcohol consumption was 9 months ago). Occasional marijuana use. Drinks two cups of caffeine a day. Last colonoscopy (2016). - Diagnosis (1) Syncope (2) Afib (3) COPD (chronic obstructive pulmonary disease) (4) Diverticulosis (5) Hypertension (6) Smoker (7) Nutrition, metabolism, and development symptoms (8) DVT prophylaxis Inpatient Certification: I certify that the inpatient services were ordered in accordance with Medicare regulations governing the order. This includes certification that hospital inpatient services are reasonable and necessary and in the case of services not specified as inpatient-only under 42 CFR 419.22(n), that they are appropriately provided as inpatient services in accordance to with the 2-midnight benchmark under 43 CFR 412.3(e) Review of Systems Constitutional: Reports headache(s), Denies chills, Denies fever(s) Comments: with near syncopal episodes Eyes: Denies blurry vision Cardiovascular: Reports chest pain, Denies rapid, pounding, or irregular heartbeat Comments: chest tightness Respiratory: Denies cough, Denies shortness of breath Gastrointestinal: Denies abdominal pain, Denies change in bowel habits PMFSH - History History Provided By: Patient - Medical History Medical History: Medical History (Last Updated 04/14/18 @ 07:29 by Angelina Blake) COPD (chronic obstructive pulmonary disease) Cardiomegaly Congestive heart failure Dilated cardiomyopathy Hypertension Paroxysmal A-fib - Surgical History Surgical History: Surgical History (Last Updated 04/14/18 @ 07:29 by Angelina Blake) Hx of cholecystectomy - Tobacco History Second Hand Smoke Exposure: Yes Tobacco Use In Past 30 Days: Yes Smoking Status: Current every day smoker Tobacco Type: Cigarettes - Alcohol History How Often Do You Have a Drink Containing Alcohol: Monthly or less - Substance Use History Substance History: No History of Abuse - Travel History Recent Travel in the [place] Within the Last 8 Weeks: No Recent Travel Out of the Country Within the Last 8 Weeks: No - Immunization History Tetanus Immunization: <5 Years Medications and Allergies Active Medications: Active Medications Non-Formulary Medication (Metoprolol Succinate [Metoprolol Succinate]) 100 mg PO DAILY MARY Non-Formulary Medication (Omeprazole [Omeprazole]) 20 mg PO DAILY MARY Allergies Allergy/AdvReac Type Severity Reaction Status Date / Time No Known Allergies Allergy Verified 04/14/18 07:25 Home Medications Medication Instructions Recorded Confirmed Type apixaban [Eliquis] 5 mg PO BID 04/14/18 04/14/18 History metoprolol succinate 100 mg PO DAILY 04/14/18 04/14/18 History omeprazole 20 mg PO DAILY 04/14/18 04/14/18 History Exam Vital signs: Vital Signs 04/14/18 07:05 04/14/18 07:33 Temperature 97.4 F L Pulse Rate 79 70 Respiratory Rate 20 18 Blood Pressure 124/75 130/99 H Pulse Oximetry 98 99 Intake & Output 04/13/18 04/14/18 04/14/18 18:59 06:59 18:59 Intake Total 500 / 500 Balance 500 / 500 Weight 90.718 kg Intake: IV 500 / 500 NS Inj 500 ML @ Wide Open IV. 500 / 500 SIG BOLUS ONE Rx#:[id number] - Constitutional no acute distress - Routine HEENT Exam Head: Present: normocephalic, atraumatic - Routine Respiratory Exam Present: CTA bilaterally - Routine Cardiovascular Exam Present: RRR, S1, S2. Absent: murmur - Routine Abdominal Exam Present: soft, normoactive bowel sounds. Absent: tenderness - Routine Neurological Exam Present: alert - Detailed Neurological Exam Cranial nerves: Normal CN II, Normal CN III, Normal CN IV, Normal CN V, Normal CN , Normal CN VII, Normal CN VIII, Normal CN IX, Normal CN X, Normal CN XI, Normal CN XII Neuro motor strength exam: LLE 5/5 (5/5 LUE, RLE, RUE) Cerebellar function: Normal finger to nose Results - Labs Result diagrams: 04/14/18 07:40 04/14/18 07:40 Abnormal lab results 04/14/18 04/14/18 Range/Units 07:40 07:40 Eos % (Auto) 7.6 H (0.0-4.0) % Eos # (Auto) 0.8 H (0.0-0.4) th/mm3 Chloride 108 H (98-107) meq/L Estimated GFR 70 L (>89) mL/min Random Glucose 125 H (74-106) mg/dL Troponin I Less than 0.02 L (0.02-0.05) ng/mL Short CBC 04/14/18 Range/Units 07:40 WBC 10.0 (4.0-11.0) th/mm3 Hgb 14.5 (13.0-17.0) gm/dL Hct 43.5 (39.0-51.0) % Plt Count 267 (150-450) th/mm3 BMP 04/14/18 07:40 Sodium 140 Potassium 4.2 Chloride 108 H Carbon Dioxide 26.2 BUN 16 Creatinine 1.07 Calcium 8.9 Cardiac Enzymes 04/14/18 Range/Units 07:40 Total Creatine Kinase 65 (39-308) U/L Troponin I Less than 0.02 L (0.02-0.05) ng/mL - Imaging Impressions Chest X-Ray 04/14/18 07:33 CONCLUSION: 1. COPD. 2. No evidence of acute airspace disease Caprini VTE Risk Assessment Caprini VTE Risk Assessment: Moderate/High Risk (score >= 2) Caprini Risk Assessment Model: Point Value = 1 Point Value = 2 Point Value = 3 Point Value = 5 Age 41-60 Minor surgery BMI > 25 kg/m2 Swollen legs Varicose veins or History of unexplained or recurrent spontaneous Oral contraceptives or hormone replacement Sepsis (< 1 month) Serious lung disease, including pneumonia (< 1 month) Abnormal pulmonary function Acute myocardial infarction Congestive heart failure (< 1 month) History of inflammatory bowel disease Medical patient at bed rest Age 61-74 Arthroscopic surgery Major open surgery (> 45 min) Laparoscopic surgery (> 45 min) Malignancy Confined to bed (> 72 hours) Immobilizing plaster cast Central venous access Age >= 75 History of VTE Family history of VTE Factor V Leiden Prothrombin [id number] Lupus anticoagulant Anticardiolipin antibodies Elevated serum homocysteine Heparin-induced thrombocytopenia Other congenital or acquired thrombophilia Stroke (< 1 month) Elective arthroplasty Hip, pelvis, or leg fracture Acute spinal cord injury (< 1 month) Prophylaxis Regimen: Total Risk Factor Score Risk Level Prophylaxis Regimen 0-1 Low Early ambulation 2 Moderate Order ONE of the following: *Sequential Compression Device (SCD) *Heparin 5000 units SQ BID 3-4 Higher Order ONE of the following medications: *Heparin 5000 units SQ TID *Enoxaparin/Lovenox 40 mg SQ daily (WT < 150 kg, CrCl > 30 mL/min) *Enoxaparin/Lovenox 30 mg SQ daily (WT < 150 kg, CrCl > 10-29 mL/min) *Enoxaparin/Lovenox 30 mg SQ BID (WT < 150 kg, CrCl > 30 mL/min) AND/OR *Sequential Compression Device (SCD) 5 or more Highest Order ONE of the following medications: *Heparin 5000 units SQ TID (Preferred with Epidurals) *Enoxaparin/Lovenox 40 mg SQ daily (WT < 150 kg, CrCl > 30 mL/min) *Enoxaparin/Lovenox 30 mg SQ daily (WT < 150 kg, CrCl > 10-29 mL/min) *Enoxaparin/Lovenox 30 mg SQ BID (WT < 150 kg, CrCl > 30 mL/min) AND *Sequential Compression Device (SCD) Assessment and Plan - Assessment (1) Syncope Code(s): R55 - Syncope and collapse Status: Acute Plan: Cardiogenic vs Neurogenic Syncope: Hx of Afib, Loop Recorder shows runs of V tach associated with syncopal episodes. EKG ordered: afib, monitor q6. Continue Metoprolol. Troponin: 0.02 on admission , trending q6. Echocardiogram ordered, will follow up. Caroid U/S ordered to rule out carotid stenosis, will follow up. Patient has multiple falls, Neuro exam normal: CT head w/o contrast to rule out brain bleed. Cardiology Consulted, appreciate recommendation of possibly getting an ACID placed. Patient placed on Telemetry. Consider orthostatic vitals when stable NPO in anticipation of procedure today. Hold Eliquis. Check PT/INR. CMP shows no electrolyte abnormalities, Continue to Monitor in AM. CBC normal. No signs of amenia. Continue to monitor in AM. UA negative. Vital Signs stable. Continue to monitor Vital Signs q4. (2) Afib Code(s): I48.91 - Unspecified atrial fibrillation Status: Acute Plan: Diagnosed 7 years go, Rate controlled with metoprolol, On Eliquis. Hold Eliquis in anticipation of AICD placement. On telemetry Continue metoprolol Follow Up Pt/INR in the AM. (3) COPD (chronic obstructive pulmonary disease) Code(s): J44.9 - Chronic obstructive pulmonary disease, unspecified Status: Acute Plan: Currently stable CXR: Normal Albuterol Neb q6 PRN Duoneb q6 PRN Incentive Spirometry post Op. (4) Diverticulosis Code(s): K57.90 - Diverticulosis of intestine, part unspecified, without perforation or abscess without bleeding Status: Acute Plan: Currently Stable Continue Home Management. (5) Hypertension Code(s): I10 - Essential (primary) hypertension Status: Acute Plan: BPs Stable: 128/69, 129/79, 128/67 Continue with Metoprolol Monitor vitals q4. (6) Smoker Code(s): F17.200 - Nicotine dependence, unspecified, uncomplicated Status: Acute Plan: Currently smokes 1 pack per day. Due to irregular heart rate, will avoid giving nicotine patches. Patient currently stable, not withdrawing from nicotine. Will consider nicotine patches if patient becomes anxious. (7) Nutrition, metabolism, and development symptoms Code(s): R63.8 - Other symptoms and signs concerning food and fluid intake Status: Acute Plan: Fluids: Normal saline at 130 mL/hour. Electrolytes: Monitor and replete as needed. Nutrition: Currently n.p.o.. (8) DVT prophylaxis Status: Acute Plan: Currently on Eliquis for A.fib. Hold Eliquis in anticipation of procedure. SCDs only. - Assessment and Plan 62-year-old male past medical history of COPD, A. fib currently on Eliquis and metoprolol presents due to multiple syncopal episodes. Loop recorder shows prolonged supraventricular tachycardia associated with syncopal episodes. Discharge Planning: Discharge anticipated status post ACID placed in relief of symptoms clinically.
[2018-04-14] MEDS ORDERED: Bisacodyl 10 MG Supp RECTAL PRN (09:48)
[2018-04-14] MEDS ORDERED: Temazepam 15 MG Capsule PO PRN (09:48)
[2018-04-14] MEDS ORDERED: Acetaminophen 325 MG Tablet PO PRN (09:48)
[2018-04-14] MEDS: Pantoprazole Sodium 20 MG DR Tablet PO SCH (10:49)
--- NOTE | 2018-04-14 11:30 | US ---
EXAM DATE: 04/14/2018 11:24 AM EDT AGE/SEX: 62 years / Male INDICATIONS: Syncope. CLINICAL DATA: This is the patient's initial encounter. Patient reports that signs and symptoms have been present for 1 day and indicates a pain score of 0/10. MEDICAL/SURGICAL HISTORY: . Pancreatitis. Gastro esophageal reflux disease. Diverticulitis. Sma ll bowel obstruction secondary to benign tumor in sigmoid colon. Esophageal polyps. Hiatal hernia. C holecystectomy. COMPARISON: No prior exams available for comparison. VELOCITY PARAMETERS: ICA/CCA Ratio: Right 0.9 , Left 1.1 ICA: Right 60.0 cm/sec, Left 58.9 cm/sec CCA: Right 65.1 cm/sec, Left 51.5 cm/sec ECA: Right 78.1 cm/sec, Left 44.6 cm/sec Vertebral: Right 50.4 cm/sec antegrade, Left 36.9 cm/sec antegrade FINDINGS: Right Carotid: No significant plaque is visualized.The waveforms are within normal limits. Left Carotid: No significant plaque is visualized. The waveforms are within normal limits. Other: None. CONCLUSION: 1. Right Internal Carotid Artery: No significant stenosis or atherosclerotic plaque is visualized. 2. Left Internal Carotid Artery: No significant stenosis or atherosclerotic plaque is visualized. Electronically signed by: Pedro Bingham MD 04/14/2018 11:29 AM EDT
--- NOTE | 2018-04-14 11:45 | CT ---
EXAM DATE: 04/14/2018 11:40 AM EDT AGE/SEX: 62 years / Male INDICATIONS: Dizziness. Woke up on floor in hallway. CLINICAL DATA: This is the patient's initial encounter. Patient reports that signs and symptoms have been present for 1 day and indicates a pain score of 0/10. MEDICAL/SURGICAL HISTORY: Hypertension. Cardiovascular disease. None. RADIATION DOSE: 37.52 CTDI (mGy) COMPARISON: No prior exams available for comparison. TECHNIQUE: CT of the head without contrast. Using automated exposure control and adjustment of the mA and/or kV according to patient size, radiation dose was kept as low as reasonably achievable to ob tain optimal diagnostic quality images. DICOM format image data is available electronically for revi ew and comparison. FINDINGS: Noncontrast axial head CT demonstrates the ventricles to be normal in size and configuration with a n ormal sulcal pattern. No acute intracranial hemorrhage, acute cortical infarction, mass or midline sh ift is seen. Old left frontal infarct is present.Posterior fossa structures are unremarkable. Bone windows are unremarkable. CONCLUSION: No evidence of acute intracranial pathology. No masses are identified. Old left frontal infarct . Electronically signed by: Den Sarabia MD 04/14/2018 11:43 AM EDT
[2018-04-14] MEDS: Sod Chloride 0.9% Inj 1,000 ML IV.CONT SCH ×2 (12:25→20:16)
[2018-04-14 12:54] LABS: Bilirubin,Urine Negative (Negative); Clarity,Urine Clear (Clear); Color,Urine Straw (Yellw/Straw); Glucose,Urine (UA) Negative (Negative); Leukocyte Esterase,Urine Negative (Negative); Nitrite,Urine Negative (Negative); Specific Gravity,Urine 1.006 (1.002-1.035); Squamous Epithelial Cell,Urine <1 /hpf (0-5)
--- NOTE | 2018-04-14 18:44 | MR ---
EXAM DATE: 04/14/2018 6:10 PM EDT AGE/SEX: 62 years / Male INDICATIONS: CVA. Syncopal episode. CLINICAL DATA: This is the patient's initial encounter. Patient reports that signs and symptoms have been present for 1 day and indicates a pain score of 0/10. MEDICAL/SURGICAL HISTORY: . Cardiac. Cholecystectomy. COMPARISON: No prior exams available for comparison. TECHNIQUE: 3D [id number] MRA was performed. Source images, multiplanar STS MIP, and 3D volum e MIP reconstructions were reviewed. FINDINGS: The distal carotid arteries and basilar artery are patent. There is no significant stenosis identifie d in the anterior, middle or posterior cerebral arteries. Slight motion degradation. Distal vertebral arteries are patent. CONCLUSION: 1. MRA head within normal limits for age. Slight motion artifact. Electronically signed by: Abimael Pierce MD 04/14/2018 6:42 PM EDT
--- NOTE | 2018-04-14 18:45 | MR ---
EXAM DATE: 04/14/2018 6:12 PM EDT AGE/SEX: 62 years / Male INDICATIONS: CVA. Syncopal episode. CLINICAL DATA: This is the patient's initial encounter. Patient reports that signs and symptoms have been present for 1 day and indicates a pain score of 0/10. MEDICAL/SURGICAL HISTORY: . Cardiac. Cholecystectomy. COMPARISON: No prior exams available for comparison. TECHNIQUE: Multiplanar, multisequence examination of the brain was performed without contrast. FINDINGS: There is focal encephalomalacia in the anterior left frontal lobe characteristic of remote infarct. N o acute infarct identified. No mass effect or midline shift. No hydrocephalus. No abnormal extra-axia l fluid collections. No sellar mass. CONCLUSION: 1. Remote infarct anterior left frontal lobe. No acute findings. No recent infarct. Electronically signed by: Abimael Pierce MD 04/14/2018 6:44 PM EDT
--- NOTE | 2018-04-14 21:49 | ECG ---
Date Performed: 04/14/2018 Time Performed: 07:16:11 PTAGE: 62 years EKG: ATRIAL FIBRILLATION WITH ABERRANT CONDUCTION OR VENTRICULAR PREMATURE COMPLEXES ABNORMAL [facility] ECG PREVIOUS TRACING : 10/11/2017 13.16 Since the previous tracing, no significant change noted DOCTOR: Jameson Guaman Interpretating Date/Time 04/14/2018 21:48:52
[2018-04-15] MEDS: Sod Chloride 0.9% Inj 1,000 ML IV.CONT SCH ×2 (03:26→09:35)
--- NOTE | 2018-04-15 09:00 | ECG ---
Date Performed: 04/14/2018 Time Performed: 20:09:24 PTAGE: 62 years EKG: ATRIAL FIBRILLATION ABNORMAL RHYTHM ECG PREVIOUS TRACING : 04/14/2018 07.16 Since the previous tracing, no significant change noted DOCTOR: Adrián Cortez Interpretating Date/Time 04/15/2018 08:59:38
[2018-04-15 09:18] LABS: Baso # (Auto) 0.1 th/mm3 (0.0-0.2); Baso % (Auto) 0.7 % (0.0-2.0); Eos # (Auto) 0.6 th/mm3 (0.0-0.4); Eos % (Auto) 7.1 % (0.0-4.0); Hematocrit 41.6 % (39.0-51.0); Lymph # (Auto) 1.8 th/mm3 (1.0-4.8); Lymph % (Auto) 21.7 % (9.0-44.0); Mean Corpuscular HGB Conc 33.5 % (32.0-36.0); Mean Corpuscular Hemoglobin 29.2 pg (27.0-34.0); Mean Platelet Volume 7.5 fL (7.0-11.0); Mono # (Auto) 0.4 th/mm3 (0.0-0.9); Mono % (Auto) 5.3 % (0.0-8.0); Neut # (Auto) 5.5 th/mm3 (1.8-7.7); Neut % (Auto) 65.2 % (16.0-70.0); Platelet Count 228 th/mm3 (150-450); Red Blood Count 4.79 mil/mm3 (4.50-5.90); Red Cell Distribution Width 15.4 % (11.6-17.2); White Blood Count 8.4 th/mm3 (4.0-11.0)
[2018-04-15 09:20] LABS: INR 1.1 Ratio; Prothrombin Time 10.9 sec (9.8-11.6)
[2018-04-15] MEDS: Pantoprazole Sodium 20 MG DR Tablet PO SCH (09:32)
[2018-04-15 09:44] LABS: Albumin 3.4 g/dL (3.4-5.0); Anion Gap 9 meq/L (5-15); Aspartate Aminotransferase 9 U/L (15-37); Calcium 8.7 mg/dL (8.5-10.1); Carbon Dioxide 22.2 meq/L (21.0-32.0); Chloride 110 meq/L (98-107); Glomerular Filtration Rate Greater Than 89 mL/min (>89); Glucose,Random 83 mg/dL (74-106); Potassium 3.9 meq/L (3.5-5.1); Sodium 141 meq/L (136-145)
[2018-04-15 09:45] LABS: Blood Urea Nitrogen 11 mg/dL (7-18)
[2018-04-15 09:51] LABS: Alanine Aminotransferase 15 U/L (12-78); Alkaline Phosphatase 58 U/L (45-117); Total Protein 6.5 g/dL (6.4-8.2)
--- NOTE | 2018-04-15 14:30 | P.PNFP ---
Subjective Interval history: Patient seen and examined bedside this morning. Patient continues to state that he feels slightly dizzy when he gets up out of bed to go to the bathroom. He has not had any syncopal episodes. He denies any chest pain or shortness of breath. He denies any palpitations, however he states he can tell his heart is beating at a different rate. No acute events overnight. No fever/chills. <Margareth Calle - 04/15/18 14:30> Results - Labs Result diagrams: 04/15/18 08:09 04/15/18 08:09 <Ryder Castellano - 04/16/18 08:26> Abnormal lab results 04/15/18 04/15/18 Range/Units 08:09 08:09 Eos % (Auto) 7.1 H (0.0-4.0) % Eos # (Auto) 0.6 H (0.0-0.4) th/mm3 Chloride 110 H (98-107) meq/L AST 9 L (15-37) U/L Short CBC 04/15/18 Range/Units 08:09 WBC 8.4 (4.0-11.0) th/mm3 Hgb 14.0 (13.0-17.0) gm/dL Hct 41.6 (39.0-51.0) % Plt Count 228 (150-450) th/mm3 BMP 04/15/18 08:09 Sodium 141 Potassium 3.9 Chloride 110 H Carbon Dioxide 22.2 BUN 11 Creatinine 0.83 Calcium 8.7 Liver Function 04/15/18 Range/Units 08:09 Total Bilirubin 1.0 (0.2-1.0) mg/dL AST 9 L (15-37) U/L ALT 15 (12-78) U/L Alkaline Phosphatase 58 (45-117) U/L Albumin 3.4 (3.4-5.0) g/dL <Ryder Castellano - 04/16/18 08:26> Abnormal lab results 04/14/18 04/14/18 04/15/18 Range/Units 15:03 21:32 08:09 Eos % (Auto) 7.1 H (0.0-4.0) % Eos # (Auto) 0.6 H (0.0-0.4) th/mm3 Chloride (98-107) meq/L AST (15-37) U/L Troponin I Less than 0.02 L Less than 0.02 L (0.02-0.05) ng/mL 04/15/18 Range/Units 08:09 Eos % (Auto) (0.0-4.0) % Eos # (Auto) (0.0-0.4) th/mm3 Chloride 110 H (98-107) meq/L AST 9 L (15-37) U/L Troponin I (0.02-0.05) ng/mL Short CBC 04/15/18 Range/Units 08:09 WBC 8.4 (4.0-11.0) th/mm3 Hgb 14.0 (13.0-17.0) gm/dL Hct 41.6 (39.0-51.0) % Plt Count 228 (150-450) th/mm3 BMP 04/15/18 08:09 Sodium 141 Potassium 3.9 Chloride 110 H Carbon Dioxide 22.2 BUN 11 Creatinine 0.83 Calcium 8.7 Cardiac Enzymes 04/14/18 04/14/18 Range/Units 15:03 21:32 Troponin I Less than 0.02 L Less than 0.02 L (0.02-0.05) ng/mL Liver Function 04/15/18 Range/Units 08:09 Total Bilirubin 1.0 (0.2-1.0) mg/dL AST 9 L (15-37) U/L ALT 15 (12-78) U/L Alkaline Phosphatase 58 (45-117) U/L Albumin 3.4 (3.4-5.0) g/dL <Margareth Calle - 04/15/18 14:30> - Imaging Impressions Head MRI 04/14/18 00:00 CONCLUSION: 1. Remote infarct anterior left frontal lobe. No acute findings. No recent infarct. Head MRA 04/14/18 00:00 CONCLUSION: 1. MRA head within normal limits for age. Slight motion artifact. <Margareth Calle - 04/15/18 14:30> Physical Exam Vital signs: Vital Signs 04/15/18 12:00 Pulse Rate 75 Intake & Output 04/15/18 04/16/18 04/16/18 18:59 06:59 18:59 Intake Total 1000 / 1000 Balance 1000 / 1000 Intake: IV 1000 / 1000 NS Inj 1,000 ML @ 130 mls/hr IV 1000 / 1000 .CONT .Q7H42M [facility] Rx#:[id number] Other: Date of Last Bowel Movement 04/14/18 <Ryder Castellano - 04/16/18 08:26> Vital Signs 04/14/18 16:00 04/14/18 20:00 04/15/18 00:00 Temperature 97.1 F L 97.5 F L Pulse Rate 64 71 81 Respiratory Rate 18 18 Blood Pressure 147/80 H 136/84 Pulse Oximetry 98 97 04/15/18 04:00 04/15/18 08:00 04/15/18 12:00 Temperature 98.2 F 97.3 F L Pulse Rate 83 68 75 Respiratory Rate 18 20 Blood Pressure 149/70 H 150/82 H Pulse Oximetry 96 98 Intake & Output 04/14/18 04/15/18 04/15/18 18:59 06:59 18:59 Intake Total 500 / 500 2120 / 2120 1000 / 1000 Output Total 200 / 200 Balance 500 / 500 1920 / 1920 1000 / 1000 Weight 90.718 kg 90.7 kg Intake: IV 500 / 500 2000 / 2000 1000 / 1000 NS Inj 1,000 ML @ 130 mls/hr IV 2000 / 2000 1000 / 1000 .CONT .Q7H42M [facility] Rx#:[id number] NS Inj 500 ML @ Wide Open IV. 500 / 500 SIG BOLUS ONE Rx#:[id number] Oral 120 / 120 Output: Urine 200 / 200 Other: Date of Last Bowel Movement 04/14/18 04/14/18 <LucMargareth - 04/15/18 14:30> - Constitutional no acute distress <[facility] 04/15/18 14:30> - Routine Respiratory Exam Present: CTA bilaterally. Absent: accessory muscle use, decreased breath sounds , respiratory distress, wheezes <[facility] - 04/15/18 14:30> - Routine Cardiovascular Exam Present: RRR, S1, S2 <[facility] - 04/15/18 14:30> - Routine Abdominal Exam Present: soft, normoactive bowel sounds. Absent: tenderness <[facility] - 04/15/18 14:30> - Routine Extremities Exam Absent: cyanosis, clubbing, edema, calf tenderness <Margareth Calle - 14:30> - Routine Neurological Exam Present: alert, oriented X3 <Margareth Calle - 04/15/18 14:30> Assessment and Plan - Assessment (1) Syncope Code(s): R55 - Syncope and collapse Status: Acute (2) History of stroke Code(s): Z86.73 - Personal history of transient ischemic attack (TIA), and cerebral infarction without residual deficits Status: Acute (3) Afib Code(s): I48.91 - Unspecified atrial fibrillation Status: Acute (4) COPD (chronic obstructive pulmonary disease) Code(s): J44.9 - Chronic obstructive pulmonary disease, unspecified Status: Acute (5) Diverticulosis Code(s): K57.90 - Diverticulosis of intestine, part unspecified, without perforation or abscess without bleeding Status: Acute (6) Hypertension Code(s): I10 - Essential (primary) hypertension Status: Acute (7) Smoker Code(s): F17.200 - Nicotine dependence, unspecified, uncomplicated Status: Acute (8) Nutrition, metabolism, and development symptoms Code(s): R63.8 - Other symptoms and signs concerning food and fluid intake Status: Acute (9) DVT prophylaxis Status: Acute <NonaRyder - 04/16/18 08:26> (1) Syncope Code(s): R55 - Syncope and collapse Status: Acute Plan: Cardiogenic vs Neurogenic versus vasovagal syncope: Hx of Afib, Loop Recorder shows runs of V tach associated with syncopal episodes. ACS workup negative Echocardiogram ordered, will follow up results as outpatient Caroid U/S: Negative Patient has multiple falls, Neuro exam normal: CT head w/o contrast: Old frontal left infarct. Treat for stroke as below Cardiology Consulted, Dr. Resendez cleared patient for discharge with follow-up as an outpatient in office Vital signs stable Will discharge and continue Eliquis anticoagulation CMP shows no electrolyte abnormalities CBC normal. No signs of amenia. UA negative. (2) History of stroke Code(s): Z86.73 - Personal history of transient ischemic attack (TIA), and cerebral infarction without residual deficits Status: Acute Plan: CT: Old left frontal infarct MRI, MRA: Same findings Continue Eliquis anticoagulation Plan to discharge on atorvastatin 80 mg at bedtime Patient strongly encouraged to stop smoking (3) Afib Code(s): I48.91 - Unspecified atrial fibrillation Status: Acute Plan: Diagnosed 7 years go, Rate controlled with metoprolol, On Eliquis. We will discharge with continued Eliquis anticoagulation Continue metoprolol (4) COPD (chronic obstructive pulmonary disease) Code(s): J44.9 - Chronic obstructive pulmonary disease, unspecified Status: Acute Plan: Currently stable CXR: Normal Albuterol Neb q6 PRN Duoneb q6 PRN Incentive Spirometry post Op. (5) Diverticulosis Code(s): K57.90 - Diverticulosis of intestine, part unspecified, without perforation or abscess without bleeding Status: Acute Plan: Currently Stable Continue Home Management. (6) Hypertension Code(s): I10 - Essential (primary) hypertension Status: Acute Plan: Stable, continue home meds (7) Smoker Code(s): F17.200 - Nicotine dependence, unspecified, uncomplicated Status: Acute Plan: Currently smokes 1 pack per day. Strongly encouraged patient to stop smoking due to discovery of old infarct (8) Nutrition, metabolism, and development symptoms Code(s): R63.8 - Other symptoms and signs concerning food and fluid intake Status: Acute Plan: Fluids: Normal saline at 130 mL/hour. Electrolytes: Monitor and replete as needed. Nutrition: Regular diet (9) DVT prophylaxis Status: Acute Plan: Since we are not doing procedure, patient may continue Eliquis for A.fib. and history of stroke SCDs only. <Margareth Calle - 04/15/18 14:15> - Assessment and Plan 62-year-old male past medical history of COPD, A. fib currently on Eliquis and metoprolol presents due to multiple syncopal episodes. Loop recorder shows prolonged supraventricular tachycardia associated with syncopal episodes. <Margareth Calle - 04/15/18 14:30> Discharge Planning: Okay for discharge today <Margareth Calle 04/15/18 14:30> - Attending Attestation The exam, history, and the medical decision-making described in the above note were completed with the assistance of the resident physician. I reviewed and agree with the findings presented. I attest that I had a [id number] encounter with the patient on the same day, and personally performed and documented my assessment and findings in the medical record. Leticia CANALES <Ryder Castellano - 04/16/18 08:26>
--- NOTE | 2018-04-15 17:05 | MB ---
cc: Nelly Resendez MD DATE: 04/15/2018 REASON FOR CONSULTATION: Ventricular tachycardia. HISTORY OF PRESENT ILLNESS: Mr. Rodrigez is a 62-year-old gentleman seen by Dr. Santana, recent hospitalization at [facility], on anticoagulation. A nuclear stress study was performed during the last hospitalization. A Holter was performed with some short bursts of wide complex tachyarrhythmia observed. The patient was seen as mentioned before by Dr. Santana. The patient has no insurance and was referred to the hospital for further evaluation and management. The chart was reviewed. The patient was evaluated. I had a long conversation with Mr. Rodrigez and I did call Dr. Santana personally to discuss the case action. ALLERGIES: NONE. SOCIAL HISTORY: Gentleman at this point referred he stopped smoking a long time ago and his partner is smoking still. FAMILY HISTORY: Noncontributory to his current medical condition. MEDICATIONS: 1. Acetaminophen. 2. Lactulose. 3. Toprol-XL 100 mg a day. 4. Protonix. 5. He is on Xarelto at home. REVIEW OF SYSTEMS: The patient referred no chest pain, no chest discomfort, no shortness of breath and no fever. PHYSICAL EXAMINATION: GENERAL: Alert, fully oriented. VITAL SIGNS: His blood pressure is 150/82, pulse 76, respiratory rate 18. LUNGS: Ventilated. CARDIOVASCULAR: S1, S2, irregular. No gallop. ABDOMEN: Soft. No mass. Obese. No bruit. EXTREMITIES: No edema. DIAGNOSTIC STUDIES: Electrocardiogram revealed atrial fibrillation. No acute ST and T-wave changes. LABORATORY DATA: Hemoglobin is 14.0, white blood cell count 8.4. INR 1.1. Potassium is 3.9, creatinine is 0.83. ASSESSMENT AND RECOMMENDATIONS: Mr. Rodrigez has atrial fibrillation. Rate is very well controlled. He is in no acute shortness of breath. He is on anticoagulation. I did talk to Dr. Santana personally. There was a nuclear stress study that was done at [facility] that indicated no ischemia, ejection fraction on 55%. This gentleman is on beta isaiah. There was a short burst of wide complex tachyarrhythmia, possible aberrancy that was seen. At this point, my recommendation is to continue current management. The gentleman was on anticoagulation for at least 4 or 5 years. He can be discharged home. I will see him in my office in 2 or 3 weeks and possible atrial fibrillation ablation can be discussed. Case extensively discussed with the patient. MD PIERRE Abdi/KATHERINE , 04:34 PM , 04:47 PM
--- NOTE | 2018-04-17 11:06 | P.DS ---
Date of admission: 04/14/18 08:57 Primary care physician: Gokul Crawford Brief History from admission: 62 year old male with PMH COPD, Afib (on Eliquis, metoprolol), benign growth in lower sigmoid colon, diverticulosis, HTN, pancreatitis presents to the emergency department with multiple syncopal episodes. He states that he has had near syncope episodes several dozen times for over a year but now the symptoms have become more severe turning into syncope. First syncopal episode was last year before his hospital visit for pancreatitis (July) when he sat up to go to the bathroom. He had associated chest pain and left arm pain. He lost consciousness for a couple of minutes per his girlfriend and had an associated broken rib due to the fall. In the past two months he had two syncopal episodes. The first one he was doing some heavy lifting, helping a friend tear down his shed and he felt himself getting dizzy. He leaned up on a 2x4 plank and his friend said "he was laying in the ground for approximately 1 minute". Denies any post ictal symptoms except for a rapid heart rate and tightness in the chest. After that episode he went to his door attendant and he got a loop recorder around 2 weeks ago. His most recent episode was 4 am this morning. He was getting up to go to the bathroom and apparently fainted. Unsure of how long he lost consciousness. He had chest pain and an elevated heart rate. Denies any urinary incontinence, nolan biting, muscle aches during this most recent episode. For his syncopal history he states he is aware of when he might go into syncope. It seems to occur with rapid movements, change in position or exertion. He explains that sitting to standing, standing to bending over causes dizziness. He saw Dr. Santana his door attendant last Saturday,where he was told his loop recorder showed prolonged super ventricular tachycardia when he had the syncopal episodes. They discussed the possibility of getting a defibrillator placed. He believes that marijuana helps with heart rate. Last smoked marijuana yesterday. He has no other complaints today. PMH: COPD, Afib (on Eliquis, metoprolol), benign growth in lower sigmoid colon, diverticulosis ( dx at 40 years ), HTN, pancreatitis PSH: Cholecsytectomy ( 25 years ago) A: NKDA Meds: advair at night, metoprolol (started 6/7 years ago), eliquis ( started 5 years ago ) SH: Lives in a mobile home with his girlfriend. Smokes 1ppd for 45 years. Denies alcohol consumption (use to drink in the past last alcohol consumption was 9 months ago). Occasional marijuana use. Drinks two cups of caffeine a day. Last colonoscopy (2016). DS: Diagnosis - Discharge Diagnosis (1) Syncope Status: Acute (2) Afib Status: Acute (3) COPD (chronic obstructive pulmonary disease) Status: Acute (4) Diverticulosis Status: Acute (5) Hypertension Status: Acute (6) Smoker Status: Acute (7) Nutrition, metabolism, and development symptoms Status: Acute (8) DVT prophylaxis Status: Acute DS: Medications - Discharge Medications Prescriptions: atorvastatin 80 mg PO DAILY 30 Days #30 tab DS: Summary Hospital Course: 62-year-old male past medical history of COPD, A. fib currently on Eliquis and metoprolol presented to the ED due to multiple syncopal episodes. Loop recorder showed prolonged supraventricular tachycardia associated with syncopal episodes. CT of head without contrast showed old frontal left infarct. MRI and MRA of head showed same findings to CT. Neuro exam normal on admission. EKG showed A.fib. Patient started on atorvastatin 80 mg and continued on home medications. Cardiology was consulted, and recommended to continue current management and to be followed up as an outpatient in 2-3 weeks for possible atrial fibrillation ablation to be discussed. Patient discharged home on atorvastatin 80 mg daily for 30 days. Eliquis 5 mg p.o. twice daily. Metoprolol 100 mg p.o. daily. Omeprazole 20 mg p.o. daily. Patient is to follow-up with Dr. Resendez for cardiology in 2 weeks. - Time Spent with Patient Total time spent providing and/or coordinating discharge services: Less than 30 minutes - Quality: VTE Deep Vein Thrombosis/Pulmonary Embolism Present on Admission: No Results Procedures completed during hospitalization: None - Impressions ITS Impressions Carotid Doppler Study 04/14/18 00:00 CONCLUSION: 1. Right Internal Carotid Artery: No significant stenosis or atherosclerotic plaque is visualized. 2. Left Internal Carotid Artery: No significant stenosis or atherosclerotic plaque is visualized. Head CT 04/14/18 00:00 CONCLUSION: No evidence of acute intracranial pathology. No masses are identified. Old left frontal infarct . Head MRI 04/14/18 00:00 CONCLUSION: 1. Remote infarct anterior left frontal lobe. No acute findings. No recent infarct. Head MRA 04/14/18 00:00 CONCLUSION: 1. MRA head within normal limits for age. Slight motion artifact. Chest X-Ray 04/14/18 07:33 CONCLUSION: 1. COPD. 2. No evidence of acute airspace disease Discharge Plan - Discharge Disposition Patient Disposition: 01 Discharge Home - Discharge Condition Condition: Stable - Discharge Order Discharge Orders: Discharge Order (Routine); Ordered 04/15/18 Ordered By: Margareth Calle - Physicians Team Primary Care Provider: Gokul Crawford Attending Provider: Ryder Castellano Other Providers: Jj Hlolis MD
== END 2018-04-15 15:02 | disposition home or self-care (01) ==
LOC: NEPC 07:00 → NEDA 08:57 → N04 14:29
PROVIDERS: ADMIT Family Medicine; ATTEND Family Medicine
DX: Z79.01 Long term (current) use of anticoagulants; I11.0 Hypertensive heart disease with heart failure; I47.1 Supraventricular tachycardia; I42.0 Dilated cardiomyopathy; I48.0 Paroxysmal atrial fibrillation; K57.30 Diverticulosis of large intestine without perforation or abscess without bleeding; F12.90 Cannabis use, unspecified, uncomplicated; I50.9 Heart failure, unspecified; F17.210 Nicotine dependence, cigarettes, uncomplicated; J44.9 Chronic obstructive pulmonary disease, unspecified; R29.6 Repeated falls; Z86.73 Personal history of transient ischemic attack (TIA), and cerebral infarction without residual deficits